=== PATIENT | female | born 1965 | race Caucasian/White ===

== ENCOUNTER 2018-11-03 20:22 | Observation (INO) | payer OTHER ==
[~2018-11-03] VITALS: Ht 162.6 cm; Wt 69.1 kg
[~2018-11-03 20:22] MED LIST: ATIVAN2 MG; BACLOFEN10 MG PO; FLUCONAZOLE100 MG PO; GABAPENTIN300 MG PO; Insulin Detemir SQ; KEFLEX500 MG PO; MACROBID 100 M100 MG PO; MOTRIN200 MG PO; NIFEDIPINE ER30 M1 PO; NORCO 10MG-325MG1 EA PO; PRAVASTATIN SOD40 MG PEG; TYLENOL WITH C1 EACH PO; ZOFRAN ODT4 MG PO
--- OUTSIDE RECORDS SUMMARY | 2018-11-03 20:24 | XMS REPORT ---
Author Author Kevin Brown Organization [employer] Address Unknown Phone Unavailable Care Team Providers Care Maintenance Manager Name Role Phone Kevin Brown CP Unavailable Allergies, Adverse Reactions, Alerts Substance Reaction Event Type Effexor Info Not Available Drug Allergy Detrol Info Not Available Drug Allergy Versed Info Not Available Non Drug Allergy Problems Problem Type Condition Code Onset Dates Condition Status Problem Atherosclerosis of [place] coronary artery of [place] heart without angina pectoris I25.10 Active Assessment DM w/o complication type II, uncontrolled E11.65 Active Problem DM w/o complication type II, uncontrolled E11.65 Active Assessment Hx of CABG Z95.1 Active Assessment Tachycardia R00.0 Active Assessment Atherosclerosis of [place] coronary artery of [place] heart without angina pectoris I25.10 Active Assessment Open wound of right foot, initial encounter S91.301A Active Medications Medication Code System Code Instructions Start Date End Date Status Dosage Tramadol HCl ND 90095494998 50 MG Orally every 6 hrs Active 1 tablet as needed Gabapentin ND 62505637726 600 MG Orally Three times a day Active 1 tablet Toprol XL ND 98013624723 25 MG Orally Once a day Nov 13, 2017 Active 1 tablet Aspirin ND 79517882964 81 MG Orally Once a day Active 1 tablet Tizanidine HCl ND 60284118308 4 MG Orally Three times a day Active 1 tablet as needed Metformin HCl ND 40351910473 500 MG Orally Twice a day Active 1 tablet with meals Lorazepam ND 07187131987 2 MG Orally Once a day Active 1 tablet at bedtime as needed Tylenol/Codeine #4 [facility] 54521560019 300-60 MG Orally every 6 hrs Active 1 tablet as needed Vital Signs Date/Time: Nov 13, 2017 BMI 25.97 Index Weight 133 lbs Height 5'3 in Cardiac Monitoring Heart Rate 120 /min Blood Pressure Diastolic 80 mm Hg Blood Pressure Systolic 122 mm Hg Results No Known Results Summary Purpose [employer] Submission
--- OUTSIDE RECORDS SUMMARY | 2018-11-03 20:24 | XMS REPORT | Clinical Summary ---
Author Author ERIKA [facility] Address Unknown Phone Unavailable Care Team Providers Care Freezing Room Worker Name Role Phone Pcp, No PCP Unavailable Jax Quarles Unavailable Allergies Comments Active Allergy Reactions Severity Noted Date Baclofen High 06/01/2017 Tolterodine High 06/01/2017 Venlafaxine High 06/01/2017 Medications End Date Status Medication Sig Dispensed Refills Start Date Active lisinopril Take 5 mg by 0 (PRINIVIL,ZESTRIL) 5 MG mouth daily. tablet Active LORazepam (ATIVAN) 2 MG Take 2 mg by 0 tabletIndications: mouth every 8 anxiety (eight) hours as needed . Active docusate sodium (COLACE) Take 100 mg 0 100 MG capsule by mouth 2 (two) times daily. Active insulin detemir (LEVEMIR) Inject 0.1 3 mL 0 100 unit/mL (3 mL) InPn mLs (10 Units 7 injectionIndications: total) type 2 diabetes mellitus subcutaneousl y nightly. Active Problems Problem Noted Date Peripheral arterial disease 06/10/2017 S/P arterial stent 06/10/2017 Acute postoperative pain 06/10/2017 Arterial embolus of lower extremity 06/10/2017 Current smoker 06/10/2017 Acute systolic heart failure 06/10/2017 Shock 06/08/2017 Acute pulmonary insufficiency following thoracic surgery 06/08/2017 Postoperative anemia due to acute blood loss 06/08/2017 Thrombocytopenia 06/08/2017 Hyperglycemia 06/08/2017 S/P CABG x 3 06/07/2017 Ischemic cardiomyopathy 06/07/2017 Chronic combined systolic and diastolic heart failure 06/07/2017 Acute on chronic systolic congestive heart failure 06/02/2017 Severe Coronary artery disease involving [place] coronary artery of [place] 06/02/2017 heart Social History Date Tobacco Use Types Packs/Day Years Used Former Smoker Smokeless Tobacco: Never Used Alcohol Use Drinks/Week oz/Week Comments No Sex Assigned at Date Recorded Not on file Industry Job Start Date Occupation Not on file Not on file Not on file Travel End Travel History Travel Start No recent travel history available. Last Filed Vital Signs Not on file Plan of Treatment Not on file Results Not on fileafter 11/02/2017 Insurance Payer Benefit Subscriber ID Type Phone Address Plan / Group [employer] - MGD CARE CIG[employer] xxxxxxxxxxx HMO/POS HMO/POS/OP EN ACCESS Advance Directives For more information, please contact: [facility] [address] [place] [phone] Date Inactivated Comments Code Status Date Activated 06/13/2017 7:26 PM Full Code 06/07/2017 6:14 PM This code status was determined by: Person holding Power of Customer Service Receptionist 06/07/2017 6:14 PM Full Code 06/04/2017 8:40 PM This code status was determined by: Patient 06/04/2017 8:40 PM Full Code 06/04/2017 6:07 PM This code status was determined by: Patient 06/04/2017 6:07 PM Full Code 06/02/2017 3:02 AM This code status was determined by: Patient
--- OUTSIDE RECORDS SUMMARY | 2018-11-03 20:24 | XMS REPORT | Continuity of Care Document ---
Author Author [facility] Address Unknown Phone Unavailable Problems Problem Status Onset Date Classification Date Reported Comments Source Atherosclerosis of [place] coronary artery of [place] heart without angina pectoris Active Problem 05/21/2018 Kevin Brown DM w/o complication type II, uncontrolled Active Diagnosis 05/21/2018 Kevin Brown Hx of CABG Active Diagnosis 05/21/2018 Kevin Brown Tachycardia Active Diagnosis 05/21/2018 Kevin Brown Open wound of right foot, initial encounter Active Diagnosis 05/21/2018 Kevin Brown Other symptoms involving cardiovascular system Active Diagnosis 05/21/2018 Kevin Brown Precordial pain Active Diagnosis 05/21/2018 Kevin Brown Atheroscler-limb&claudic Active Problem 05/21/2018 Kevin Brown Shortness of breath Active Diagnosis 05/21/2018 Kevin Brown Tobacco abuse Active Diagnosis 05/21/2018 Kevin Brown Medications Medication Details Route Status Patient Instructions Ordering Provider Order Date Source Toprol XL 1 tablet Orally Active 25 MG Orally Once a day med 11/13/2017 Kevin Brown Tramadol HCl 1 tablet as needed Orally Active 50 MG Orally every 6 hrs Kevin Brown Gabapentin 1 tablet Orally Active 600 MG Orally Three times a day Kevin Brown Aspirin 1 tablet Orally Active 81 MG Orally Once a day Kevin Brown Tizanidine HCl 1 tablet as needed Orally Active 4 MG Orally Three times a day Kevin Brown Metformin HCl 1 tablet with meals Orally Active 500 MG Orally Twice a day Kevin Brown Lorazepam 1 tablet at bedtime as needed Orally Active 2 MG Orally Once a day Kevin Brown Tylenol/Codeine #4 1 tablet as needed Orally Active 300-60 MG Orally every 6 hrs Kevin Brown Plavix 1 tablet Orally Active 75 MG Orally Once a day Kevin Brown Lisinopril 1 tablet Orally Active 2.5 MG Orally Once a day Kevin Brown Potassium Chloride Judit ER 1 tablet with food Orally Active 10 MEQ Orally Twice a day Kevin Brown Metoprolol Succinate ER 1 tablet Orally Active 25 MG Orally Once a day Kevin Brown Furosemide 1 tablet Orally Active 20 MG Orally Once a day Kevin Brown Atorvastatin Calcium 1 tablet Orally Active 40 MG Orally Once a day Kevin Brown Carvedilol not defined Orally Active 3.125 MG Orally Kevin Brown Toprol XL 1 tablet Orally Active 25 MG Orally Once a day Kevin Brown Allergies, Adverse Reactions, Alerts Substance Category Reaction Severity Reaction type Status Date Reported Comments Source Effexor Adverse Reaction Info Not Available Adverse Reaction Active 04/02/2018 Kevin Brown Detrol Adverse Reaction Info Not Available Adverse Reaction Active 04/02/2018 Kevin Brown Versed Adverse Reaction Info Not Available Adverse Reaction Active 04/02/2018 Kevin Brown Immunizations Immunization Date Given Site Status Last Updated Comments Source Results Order Name Results Value Reference Range Date Interpretation Comments Source Vital Signs Vital Sign Value Date Comments Source Weight 133 04/02/2018 Kevin Brown Heart Rate 102 04/02/2018 Thomasaaliyah Thomasaaliyah Diastolic (mm Hg) 70 04/02/2018 Thomasaaliyah Brown Systolic (mm Hg) 112 04/02/2018 Kevin Brwon Weight 133 11/13/2017 eKvin Brown Heart Rate 120 11/13/2017 Thomasaaliyah Brown Diastolic (mm Hg) 80 11/13/2017 Thomasaaliyah Brown Systolic (mm Hg) 122 11/13/2017 Kevin Brown Encounters Location Location Details Encounter Type Encounter Number Reason For Visit Attending Provider ADM Date DC Date Status Source Procedures Procedure Code Date Perfomer Comments Source
--- OUTSIDE RECORDS SUMMARY | 2018-11-03 20:25 | XMS REPORT ---
Author Author Kevin Brown Organization [employer] Address Unknown Phone Unavailable Care Team Providers Care Physical Therapy Director Name Role Phone Kevin Brown CP Unavailable Allergies No Known Allergies Problems Problem Type Condition Code Onset Dates Condition Status Assessment Hx of CABG Z95.1 Active Assessment DM w/o complication type II, uncontrolled E11.65 Active Assessment Other symptoms involving cardiovascular system R09.89 Active Problem DM w/o complication type II, uncontrolled E11.65 Active Problem Atherosclerosis of [place] coronary artery of [place] heart without angina pectoris I25.10 Active Problem Atheroscler-limb&claudic I70.219 Active Assessment Atherosclerosis of [place] coronary artery of [place] heart without angina pectoris I25.10 Active Assessment Tachycardia R00.0 Active Assessment Shortness of breath R06.02 Active Assessment Precordial pain R07.2 Active Assessment Open wound of right foot, initial encounter S91.301A Active Assessment Tobacco abuse Z72.0 Active Assessment Atheroscler-limb&claudic I70.219 Active Medications Medication Code System Code Instructions Start Date End Date Status Dosage Toprol XL [facility] 95608343051 25 MG Orally Once a day Active 1 tablet Results No Known Results Summary Purpose [employer] Submission
--- OUTSIDE RECORDS SUMMARY | 2018-11-03 20:25 | XMS REPORT ---
Author Author Kevin Brown Organization [employer] Address Unknown Phone Unavailable Care Team Providers Care Master Control Supervisor Name Role Phone Kevin Brown CP Unavailable Allergies, Adverse Reactions, Alerts Substance Reaction Event Type Effexor Info Not Available Drug Allergy Detrol Info Not Available Drug Allergy Versed Info Not Available Non Drug Allergy Problems Problem Type Condition Code Onset Dates Condition Status Assessment Other symptoms involving cardiovascular system R09.89 Active Assessment Tachycardia R00.0 Active Assessment Precordial pain R07.2 Active Problem DM w/o complication type II, uncontrolled E11.65 Active Problem Atherosclerosis of [place] coronary artery of [place] heart without angina pectoris I25.10 Active Problem Atheroscler-limb&claudic I70.219 Active Assessment Open wound of right foot, initial encounter S91.301A Active Assessment Hx of CABG Z95.1 Active Assessment DM w/o complication type II, uncontrolled E11.65 Active Assessment Atherosclerosis of [place] coronary artery of [place] heart without angina pectoris I25.10 Active Assessment Shortness of breath R06.02 Active Assessment Tobacco abuse Z72.0 Active Assessment Atheroscler-limb&claudic I70.219 Active Medications Medication Code System Code Instructions Start Date End Date Status Dosage Tylenol/Codeine #4 [facility] 76103082716 300-60 MG Orally every 6 hrs Active 1 tablet as needed Lorazepam ND 10971114201 2 MG Orally Once a day Active 1 tablet at bedtime as needed Plavix [facility] 59334283577 75 MG Orally Once a day Active 1 tablet Lisinopril ND 48085218254 2.5 MG Orally Once a day Active 1 tablet Potassium Chloride Judit ER ND 25474722281 10 MEQ Orally Twice a day Active 1 tablet with food Metformin HCl ND 70664012652 500 MG Orally Twice a day Active 1 tablet with meals Metoprolol Succinate ER ND 50689501430 25 MG Orally Once a day Active 1 tablet Furosemide ND 52295319682 20 MG Orally Once a day Active 1 tablet Atorvastatin Calcium ND 74487235923 40 MG Orally Once a day Active 1 tablet Carvedilol [facility] 04480863471 3.125 MG Orally Active not defined Tramadol HCl [facility] 13824354365 50 MG Orally every 6 hrs Active 1 tablet as needed Toprol XL [facility] 72008108390 25 MG Orally Once a day Active 1 tablet Gabapentin [facility] 55413866847 600 MG Orally Three times a day Active 1 tablet Aspirin [facility] 02834516040 81 MG Orally Once a day Active 1 tablet Tizanidine HCl [facility] 38856037801 4 MG Orally Three times a day Active 1 tablet as needed Vital Signs Date/Time: April 02, 2018 BMI 25.97 Index Weight 133 lbs Height 5'3 in Cardiac Monitoring Heart Rate 102 /min Blood Pressure Diastolic 70 mm Hg Blood Pressure Systolic 112 mm Hg Results No Known Results Summary Purpose [employer]Works Submission
--- OUTSIDE RECORDS SUMMARY | 2018-11-03 20:26 | XMS REPORT ---
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 Allergies, Adverse Reactions, Alerts Allergy Name Allergy Type Status Severity Reaction(s) Onset Date Inactive Date Treating Clinician Comments baclofen DA Active MO 2018-09-13 00:00:00 tolterodine tartrate DA Active U 2018-07-11 00:00:00 baclofen DA Active U 2018-07-11 00:00:00 venlafaxine DA Active MO 2018-07-11 00:00:00 midazolam DA Active MO 2018-07-11 00:00:00 tolterodine tartrate DA Active U 2018-04-25 00:00:00 baclofen DA Active U 2018-04-25 00:00:00 venlafaxine DA Active MO 2018-04-25 00:00:00 midazolam DA Active MO 2018-04-25 00:00:00 Medications This patient has no known medications. Results Test Description Test Time Test Comments Text Results Atomic Results Result Comments BLOOD CULTURE 2017-06-15 00:00:00 CULTURE (BEAKER) (test xjtu=6546) No growth in 5 days BLOOD [id number] 00:00:00* Test Item Value Reference Range Comments CULTURE (BEAKER) (test gwbr=4859) No growth in 5 days POCT-GLUCOSE [id number] 08:13:00* Test Item Value Reference Range Comments POC-GLUCOSE METER (BEAKER) (test yxya=6336) 181 mg/dL 70-110 TESTED AT [address] [address] CBC (HEMOGRAM ONLY)2017-06-13 08:07:00* Test Item Value Reference Range Comments WHITE BLOOD CELL COUNT (BEAKER) (test llel=516) 8.0 K/ L 3.5-10.5 RED BLOOD CELL COUNT (BEAKER) (test wtlz=583) 2.97 M/ L 3.93-5.22 HEMOGLOBIN (BEAKER) (test oxqp=407) 9.4 GM/DL 11.2-15.7 HEMATOCRIT (BEAKER) (test cmhb=851) 29.4 % 34.1-44.9 MEAN CORPUSCULAR VOLUME (BEAKER) (test rsip=573) 99.0 fL 79.4-94.8 MEAN CORPUSCULAR HEMOGLOBIN (BEAKER) (test zedo=880) 31.6 pg 25.6-32.2 MEAN CORPUSCULAR HEMOGLOBIN CONC (BEAKER) (test hwnr=656) 32.0 GM/DL 32.2-35.5 RED CELL DISTRIBUTION WIDTH (BEAKER) (test efsh=432) 14.0 % 11.7-14.4 PLATELET COUNT (BEAKER) (test cbyz=284) 237 K/CU MM 150-450 MEAN PLATELET VOLUME (BEAKER) (test ssgf=406) 11.6 fL 9.4-12.3 NUCLEATED RED BLOOD CELLS (BEAKER) (test kuuu=935) 0 /100 WBC 0-0 BASIC METABOLIC [id number] 07:16:00* Test Item Value Reference Range Comments SODIUM (BEAKER) (test jvyl=168) 138 meq/L 136-145 POTASSIUM (BEAKER) (test uate=583) 3.9 meq/L 3.5-5.1 CHLORIDE (BEAKER) (test wlpr=577) 107 meq/L 98-107 CO2 (BEAKER) (test nuzi=511) 21 meq/L 22-29 BLOOD UREA NITROGEN (BEAKER) (test srfc=512) 13 mg/dL 7-21 CREATININE (BEAKER) (test jxrm=224) 0.67 mg/dL 0.57-1.25 GLUCOSE RANDOM (BEAKER) (test oiys=073) 172 mg/dL 70-105 CALCIUM (BEAKER) (test zbur=505) 8.4 mg/dL 8.4-10.2 EGFR (BEAKER) (test szuf=5795) 92 mL/min/1.73 sq m ESTIMATED GFR IS NOT ACCURATE CREATININE CLEARANCE IN PREDICTING GLOMERULAR FILTRATION RATE. ESTIMATED GFR IS NOT APPLICABLE FOR DIALYSIS PATIENTS. [id number] 07:16:00* Test Item Value Reference Range Comments MAGNESIUM (BEAKER) (test mfck=965) 1.4 mg/dL 1.6-2.6 POCT-GLUCOSE [id number] 01:12:00* Test Item Value Reference Range Comments POC-GLUCOSE METER (BEAKER) (test ngmd=9789) 177 mg/dL 70-[address] [facility] [address] [facility] [address] POCT-GLUCOSE [id number] 21:33:00* Test Item Value Reference Range Comments POC-GLUCOSE METER (BEAKER) (test uevd=6263) 278 mg/dL 70-110 TESTED AT [place] [id number] [facility] [address] URINALYSIS W/ [id number] 19:16:00* Test Item Value Reference Range Comments COLOR (BEAKER) (test omsu=937) Yellow CLARITY (BEAKER) (test auhz=560) Clear SPECIFIC GRAVITY UA (BEAKER) (test nqjy=945) 1.015 1.001-1.035 PH UA (BEAKER) (test nqtg=357) 7.5 5.0-8.0 PROTEIN UA (BEAKER) (test duar=152) 10 mg/dL Negative GLUCOSE UA (BEAKER) (test jldh=619) Negative Negative KETONES UA (BEAKER) (test gibt=585) Negative Negative BILIRUBIN UA (BEAKER) (test zrdq=815) Negative Negative BLOOD UA (BEAKER) (test vbnt=020) Negative Negative NITRITE UA (BEAKER) (test dugy=243) Negative Negative LEUKOCYTE ESTERASE UA (BEAKER) (test vwbt=887) Negative Negative UROBILINOGEN UA (BEAKER) (test fkam=335) > mg/dL 0.2-1.0 RBC UA (BEAKER) (test rygs=556) 0 /HPF WBC UA (BEAKER) (test ocvt=810) 1 /HPF SQUAMOUS EPITHELIAL (BEAKER) (test urkb=691) 1 /HPF SOURCE(BEAKER) (test yotr=6234) Urine, Voided POCT-GLUCOSE [id number] 17:33:00* Test Item Value Reference Range Comments POC-GLUCOSE METER (BEAKER) (test kkpd=5232) 194 mg/dL 70-110 TESTED AT [place] [id number] URINE [id number] 17:00:00* Test Item Value Reference Range Comments CULTURE (BEAKER) (test ifmv=7335) >100,000 col/mL Olga glabrataThis is a corrected organism result. Previous result was Olga krusei on 06/12/2017 at 0904 CDT CORRECTED REPORTFROM OLGA KRUSEI AND OLGA ALBICANS TO OLGA GLABRA TAPOCT-GLUCOSE [id number] 13:34:00* Test Item Value Reference Range Comments POC-GLUCOSE METER (BEAKER) (test qded=1004) 170 mg/dL 70-110 TESTED AT [address] [address] POCT-GLUCOSE [id number] 08:00:00* Test Item Value Reference Range Comments POC-GLUCOSE METER (BEAKER) (test ltrp=8085) 173 mg/dL 70-110 TESTED AT [address] [address] POCT-GLUCOSE [id number] 21:15:00* Test Item Value Reference Range Comments POC-GLUCOSE METER (BEAKER) (test odme=7152) 236 mg/dL 70-110 TESTED AT [address] [address] POCT-GLUCOSE [id number] 17:28:00* Test Item Value Reference Range Comments POC-GLUCOSE METER (BEAKER) (test cild=9900) 130 mg/dL 70-110 TESTED AT [address] [address] POCT-GLUCOSE [id number] 12:21:00* Test Item Value Reference Range Comments POC-GLUCOSE METER (BEAKER) (test yxzm=2512) 261 mg/dL 70-110 TESTED AT [place] [address] [id number] 08:02:00* Test Item Value Reference Range Comments MAGNESIUM (BEAKER) (test zgqs=963) 1.7 mg/dL 1.6-2.6 BASIC METABOLIC [id number] 08:02:00* Test Item Value Reference Range Comments SODIUM (BEAKER) (test xbhx=782) 137 meq/L 136-145 POTASSIUM (BEAKER) (test sqnp=720) 3.9 meq/L 3.5-5.1 CHLORIDE (BEAKER) (test bikz=270) 105 meq/L 98-107 CO2 (BEAKER) (test lmko=357) 24 meq/L 22-29 BLOOD UREA NITROGEN (BEAKER) (test eero=686) 19 mg/dL 7-21 CREATININE (BEAKER) (test wept=811) 0.71 mg/dL 0.57-1.25 GLUCOSE RANDOM (BEAKER) (test naak=272) 179 mg/dL 70-105 CALCIUM (BEAKER) (test sege=656) 8.6 mg/dL 8.4-10.2 EGFR (BEAKER) (test ebyi=0065) 86 mL/min/1.73 sq m ESTIMATED GFR IS NOT ACCURATE CREATININE CLEARANCE IN PREDICTING GLOMERULAR FILTRATION RATE. ESTIMATED GFR IS NOT APPLICABLE FOR DIALYSIS PATIENTS. POCT-GLUCOSE [id number] 07:47:00* Test Item Value Reference Range Comments POC-GLUCOSE METER (BEAKER) (test maiu=4684) 199 mg/dL 70-110 TESTED AT [address] [address] POCT-GLUCOSE [id number] 22:31:00* Test Item Value Reference Range Comments POC-GLUCOSE METER (BEAKER) (test bexp=7447) 185 mg/dL 70-110 TESTED AT [address] [address] POCT-GLUCOSE [id number] 16:39:00* Test Item Value Reference Range Comments POC-GLUCOSE METER (BEAKER) (test rjqq=8613) 191 mg/dL 70-110 TESTED AT [address] [address] POCT-GLUCOSE [id number] 12:36:00* Test Item Value Reference Range Comments POC-GLUCOSE METER (BEAKER) (test zbwc=3567) 203 mg/dL 70-110 TESTED AT [address] [address] POCT-GLUCOSE [id number] 07:42:00* Test Item Value Reference Range Comments POC-GLUCOSE METER (BEAKER) (test obbm=1427) 178 mg/dL 70-110 TESTED AT [address] [address] [id number] 07:23:00* Test Item Value Reference Range Comments MAGNESIUM (BEAKER) (test yuxi=892) 2.0 mg/dL 1.6-2.6 CBC W/PLT COUNT & AUTO [id number] 05:35:00* Test Item Value Reference Range Comments WHITE BLOOD CELL COUNT (BEAKER) (test zjeh=313) 12.0 K/ L 3.5-10.5 RED BLOOD CELL COUNT (BEAKER) (test dgln=566) 3.37 M/ L 3.93-5.22 HEMOGLOBIN (BEAKER) (test wzlv=008) 10.4 GM/DL 11.2-15.7 HEMATOCRIT (BEAKER) (test xxzn=424) 32.4 % 34.1-44.9 MEAN CORPUSCULAR VOLUME (BEAKER) (test vkbo=622) 96.1 fL 79.4-94.8 MEAN CORPUSCULAR HEMOGLOBIN (BEAKER) (test ulge=063) 30.9 pg 25.6-32.2 MEAN CORPUSCULAR HEMOGLOBIN CONC (BEAKER) (test crgl=457) 32.1 GM/DL 32.2-35.5 RED CELL DISTRIBUTION WIDTH (BEAKER) (test vlmw=105) 15.0 % 11.7-14.4 PLATELET COUNT (BEAKER) (test taoc=737) 130 K/CU MM 150-450 MEAN PLATELET VOLUME (BEAKER) (test lgmt=291) 12.3 fL 9.4-12.3 NUCLEATED RED BLOOD CELLS (BEAKER) (test tvwx=186) 0 /100 WBC 0-0 NEUTROPHILS RELATIVE PERCENT (BEAKER) (test lbkh=411) 68 % LYMPHOCYTES RELATIVE PERCENT (BEAKER) (test gatl=768) 22 % MONOCYTES RELATIVE PERCENT (BEAKER) (test dcei=620) 7 % EOSINOPHILS RELATIVE PERCENT (BEAKER) (test kale=198) 1 % BASOPHILS RELATIVE PERCENT (BEAKER) (test unep=748) 1 % NEUTROPHILS ABSOLUTE COUNT (BEAKER) (test qngc=721) 8.19 K/ L 1.56-6.13 LYMPHOCYTES ABSOLUTE COUNT (BEAKER) (test jcnz=804) 2.66 K/ L 1.18-3.74 MONOCYTES ABSOLUTE COUNT (BEAKER) (test gimo=382) 0.88 K/ L 0.24-0.36 EOSINOPHILS ABSOLUTE COUNT (BEAKER) (test fxnv=174) 0.12 K/ L 0.04-0.36 BASOPHILS ABSOLUTE COUNT (BEAKER) (test xfhb=968) 0.08 K/ L 0.01-0.08 IMMATURE GRANULOCYTES-RELATIVE PERCENT (BEAKER) (test wgwm=7779) 1 % 0-1 BASIC METABOLIC [id number] 05:08:00* Test Item Value Reference Range Comments SODIUM (BEAKER) (test zkln=601) 139 meq/L 136-145 POTASSIUM (BEAKER) (test jrnc=972) 3.6 meq/L 3.5-5.1 CHLORIDE (BEAKER) (test qlvp=244) 107 meq/L 98-107 CO2 (BEAKER) (test fsvk=864) 21 meq/L 22-29 BLOOD UREA NITROGEN (BEAKER) (test bnyo=639) 16 mg/dL 7-21 CREATININE (BEAKER) (test yutx=012) 0.68 mg/dL 0.57-1.25 GLUCOSE RANDOM (BEAKER) (test yxng=172) 163 mg/dL 70-105 CALCIUM (BEAKER) (test lsnj=314) 8.2 mg/dL 8.4-10.2 EGFR (BEAKER) (test lqxe=3246) 90 mL/min/1.73 sq m ESTIMATED GFR IS NOT ACCURATE CREATININE CLEARANCE IN PREDICTING GLOMERULAR FILTRATION RATE. ESTIMATED GFR IS NOT APPLICABLE FOR DIALYSIS PATIENTS. PROTHROMBIN TIME/[id number] 05:06:00* Test Item Value Reference Range Comments PROTIME (BEAKER) (test ypdo=240) 15.3 seconds 11.7-14.7 INR (BEAKER) (test kmud=108) 1.2 <=5.9 RECOMMENDED COUMADIN/WARFARIN INR THERAPY RANGESSTANDARD DOSE: 2.0 - 3.0 Inclu taylor: PROPHYLAXIS for venous thrombosis, systemic embolization; TREATMENT for benson ous thrombosis and/or pulmonary embolus.HIGH RISK: Target INR is 2.5-3.5 for pat ients with mechanical heart valves.[id number] 05:06:00* Test Item Value Reference Range Comments PARTIAL THROMBOPLASTIN TIME (BEAKER) (test jndw=307) 26.4 seconds 22.5-36.0 CALCIUM, [id number] 05:00:00* Test Item Value Reference Range Comments CALCIUM IONIZED (BEAKER) (test tsoe=541) 1.02 mmol/L 1.12-1.27 PH, BLOOD (BEAKER) (test uswo=2439) 7.42 POCT-GLUCOSE [id number] 02:33:00* Test Item Value Reference Range Comments POC-GLUCOSE METER (BEAKER) (test wmfp=4759) 190 mg/dL 70-[address] [facility] [address] [facility] [address] SPUTUM CULTURE + GRAM [id number] 23:24:00* Test Item Value Reference Range Comments CULTURE (BEAKER) (test xeua=6557) Oropharyngeal contamination, specimen rejected. Recollect requested. GRAM STAIN RESULT (BEAKER) (test mgdl=1911) <1+ WBCs GRAM STAIN RESULT (BEAKER) (test gehc=27383) >25 epithelial cells GRAM STAIN RESULT (BEAKER) (test ysqs=28783) 1+ gram negative rods GRAM STAIN RESULT (BEAKER) (test hqfr=236421) 1+ gram positive rods GRAM STAIN RESULT (BEAKER) (test annr=885275) 2+ gram positive cocci in pairs GRAM STAIN RESULT (BEAKER) (test wthj=199290) <1+ yeast GRAM STAIN RESULT (BEAKER) (test ogco=345636) <1+ gram variable rods [id number] 22:09:00* Test Item Value Reference Range Comments POTASSIUM (BEAKER) (test dzeu=297) 4.0 meq/L 3.5-5.1 Check Serum Magnesium level 2 hours after IV magnesium replacement.Check Serum P otassium level 2 hours after oral potassium replacement completed or 30 min afte r intravenous potassium replacement.[id number] 22:09:00* Test Item Value Reference Range Comments MAGNESIUM (BEAKER) (test aqns=159) 1.9 mg/dL 1.6-2.6 Check Serum Magnesium level 2 hours after IV magnesium replacement.Check Serum P otassium level 2 hours after oral potassium replacement completed or 30 min afte r intravenous potassium replacement.HEMOGLOBIN AND [id number] 21:46:00 * Test Item Value Reference Range Comments HEMOGLOBIN (BEAKER) (test pwpo=104) 10.2 GM/DL 11.2-15.7 HEMATOCRIT (BEAKER) (test cmtx=512) 31.7 % 34.1-44.9 POCT-GLUCOSE [id number] 19:29:00* Test Item Value Reference Range Comments POC-GLUCOSE METER (BEAKER) (test bpyv=4399) 179 mg/dL 70-[address] [facility] [address] [facility] [address] [id number] 15:59:00* Test Item Value Reference Range Comments ACTIVATED CLOTTING TIME (BEAKER) (test rszv=410) 224 sec TESTED AT [place] [id number] [facility] [address] HGB/HCT (H&H) - STAT [id number] 14:22:00* Test Item Value Reference Range Comments HEMOGLOBIN (BEAKER) (test qsuh=884) 10.3 g/dL 12.0-15.0 HEMATOCRIT (BEAKER) (test fjfh=074) 30.0 % 36.0-45.0 PH, [id number] 14:22:00* Test Item Value Reference Range Comments PH VENOUS (BEAKER) (test fblk=220) 7.48 7.32-7.42 SODIUM NA-STAT [id number] 14:21:00* Test Item Value Reference Range Comments SODIUM (BEAKER) (test jfvr=948) 138 meq/L 135-148 POTASSIUM-STAT [id number] 14:21:00* Test Item Value Reference Range Comments POTASSIUM (BEAKER) (test aqle=047) 3.5 meq/L 3.6-5.5 OXYGEN SATURATION, [id number] 14:20:00* Test Item Value Reference Range Comments O2 SATURATION (MEASURED) (BEAKER) (test lisc=9091) 64.0 % [id number] 14:03:00* Test Item Value Reference Range Comments PARTIAL THROMBOPLASTIN TIME (BEAKER) (test sfek=227) 33.2 seconds 22.5-36.0 Prior to initiating heparinBASIC METABOLIC [id number] 14:01:00* Test Item Value Reference Range Comments SODIUM (BEAKER) (test hrez=791) 141 meq/L 136-145 POTASSIUM (BEAKER) (test cmpm=457) 3.9 meq/L 3.5-5.1 CHLORIDE (BEAKER) (test faln=451) 109 meq/L 98-107 CO2 (BEAKER) (test vxmp=462) 23 meq/L 22-29 BLOOD UREA NITROGEN (BEAKER) (test zwho=016) 15 mg/dL 7-21 CREATININE (BEAKER) (test qvkk=338) 0.75 mg/dL 0.57-1.25 GLUCOSE RANDOM (BEAKER) (test irsp=021) 145 mg/dL 70-105 CALCIUM (BEAKER) (test qlaz=641) 8.7 mg/dL 8.4-10.2 EGFR (BEAKER) (test wnry=8638) 81 mL/min/1.73 sq m ESTIMATED GFR IS NOT ACCURATE CREATININE CLEARANCE IN PREDICTING GLOMERULAR FILTRATION RATE. ESTIMATED GFR IS NOT APPLICABLE FOR DIALYSIS PATIENTS. PLATELET [id number] 13:43:00* Test Item Value Reference Range Comments PLATELET COUNT (BEAKER) (test gajc=305) 122 K/CU MM 150-450 POCT-GLUCOSE [id number] 12:52:00* Test Item Value Reference Range Comments POC-GLUCOSE METER (BEAKER) (test vwod=8087) 157 mg/dL 70-110 TESTED AT [address] [address] POCT-GLUCOSE [id number] 08:38:00* Test Item Value Reference Range Comments POC-GLUCOSE METER (BEAKER) (test zubm=1092) 207 mg/dL 70-110 TESTED AT [address] [address] BASIC METABOLIC [id number] 04:32:00* Test Item Value Reference Range Comments SODIUM (BEAKER) (test ewtz=159) 138 meq/L 136-145 POTASSIUM (BEAKER) (test hdyc=534) 4.4 meq/L 3.5-5.1 CHLORIDE (BEAKER) (test yuwo=807) 109 meq/L 98-107 CO2 (BEAKER) (test okvs=489) 21 meq/L 22-29 BLOOD UREA NITROGEN (BEAKER) (test zrhq=509) 13 mg/dL 7-21 CREATININE (BEAKER) (test birj=392) 0.73 mg/dL 0.57-1.25 GLUCOSE RANDOM (BEAKER) (test gisq=710) 155 mg/dL 70-105 CALCIUM (BEAKER) (test wndy=448) 8.4 mg/dL 8.4-10.2 EGFR (BEAKER) (test qwwk=0749) 83 mL/min/1.73 sq m ESTIMATED GFR IS NOT ACCURATE CREATININE CLEARANCE IN PREDICTING GLOMERULAR FILTRATION RATE. ESTIMATED GFR IS NOT APPLICABLE FOR DIALYSIS PATIENTS. [id number] 04:31:00* Test Item Value Reference Range Comments MAGNESIUM (BEAKER) (test ebva=908) 2.8 mg/dL 1.6-2.6 CBC W/PLT COUNT & AUTO [id number] 03:53:00* Test Item Value Reference Range Comments WHITE BLOOD CELL COUNT (BEAKER) (test gamo=380) 11.9 K/ L 3.5-10.5 RED BLOOD CELL COUNT (BEAKER) (test hutd=350) 3.08 M/ L 3.93-5.22 HEMOGLOBIN (BEAKER) (test kugx=926) 9.5 GM/DL 11.2-15.7 HEMATOCRIT (BEAKER) (test iifa=864) 29.8 % 34.1-44.9 MEAN CORPUSCULAR VOLUME (BEAKER) (test jwhp=800) 96.8 fL 79.4-94.8 MEAN CORPUSCULAR HEMOGLOBIN (BEAKER) (test rlkj=919) 30.8 pg 25.6-32.2 MEAN CORPUSCULAR HEMOGLOBIN CONC (BEAKER) (test bzhf=739) 31.9 GM/DL 32.2-35.5 RED CELL DISTRIBUTION WIDTH (BEAKER) (test rcvs=592) 15.3 % 11.7-14.4 PLATELET COUNT (BEAKER) (test yaao=041) 113 K/CU MM 150-450 MEAN PLATELET VOLUME (BEAKER) (test vedu=037) 12.1 fL 9.4-12.3 NUCLEATED RED BLOOD CELLS (BEAKER) (test mqpe=033) 0 /100 WBC 0-0 NEUTROPHILS RELATIVE PERCENT (BEAKER) (test yjuj=185) 65 % LYMPHOCYTES RELATIVE PERCENT (BEAKER) (test hpod=251) 24 % MONOCYTES RELATIVE PERCENT (BEAKER) (test apnf=622) 8 % EOSINOPHILS RELATIVE PERCENT (BEAKER) (test cupx=659) 1 % BASOPHILS RELATIVE PERCENT (BEAKER) (test ibcs=447) 1 % NEUTROPHILS ABSOLUTE COUNT (BEAKER) (test aqhx=810) 7.75 K/ L 1.56-6.13 LYMPHOCYTES ABSOLUTE COUNT (BEAKER) (test zmqf=070) 2.87 K/ L 1.18-3.74 MONOCYTES ABSOLUTE COUNT (BEAKER) (test pjbw=771) 0.98 K/ L 0.24-0.36 EOSINOPHILS ABSOLUTE COUNT (BEAKER) (test mvdq=721) 0.12 K/ L 0.04-0.36 BASOPHILS ABSOLUTE COUNT (BEAKER) (test qmfx=738) 0.06 K/ L 0.01-0.08 IMMATURE GRANULOCYTES-RELATIVE PERCENT (BEAKER) (test smta=1974) 1 % 0-1 CALCIUM, [id number] 03:49:00* Test Item Value Reference Range Comments CALCIUM IONIZED (BEAKER) (test vqke=373) 1.17 mmol/L 1.12-1.27 PH, BLOOD (BEAKER) (test hpkp=8009) 7.45 OXYGEN SATURATION, [id number] 03:48:00* Test Item Value Reference Range Comments O2 SATURATION (MEASURED) (BEAKER) (test neve=3251) 61.5 % POCT-GLUCOSE [id number] 02:25:00* Test Item Value Reference Range Comments POC-GLUCOSE METER (BEAKER) (test aowg=3707) 130 mg/dL 70-[address] [facility] [address] [facility] [address] [id number] 00:43:00* Test Item Value Reference Range Comments POTASSIUM (BEAKER) (test qmzr=353) 1.7 meq/L 3.5-5.1 [id number] 00:43:00* Test Item Value Reference Range Comments MAGNESIUM (BEAKER) (test pbus=810) < mg/dL 1.6-2.6 CALCIUM, [id number] 00:24:00* Test Item Value Reference Range Comments CALCIUM IONIZED (BEAKER) (test odco=168) 1.14 mmol/L 1.12-1.27 PH, BLOOD (BEAKER) (test qpun=7564) 7.45 HEMOGLOBIN AND [id number] 00:22:00* Test Item Value Reference Range Comments HEMOGLOBIN (BEAKER) (test afek=762) 9.6 GM/DL 11.2-15.7 HEMATOCRIT (BEAKER) (test tfpa=807) 30.0 % 34.1-44.9 POCT-GLUCOSE [id number] 19:25:00* Test Item Value Reference Range Comments POC-GLUCOSE METER (BEAKER) (test jdfg=2388) 156 mg/dL 70-110 TESTED AT [address] [address] POCT-GLUCOSE [id number] 17:01:00* Test Item Value Reference Range Comments POC-GLUCOSE METER (BEAKER) (test xhza=1544) 85 mg/dL 70-110 TESTED AT [address] [address] POCT-GLUCOSE [id number] 17:01:00* Test Item Value Reference Range Comments POC-GLUCOSE METER (BEAKER) (test xgyd=1709) 116 mg/dL 70-110 TESTED AT [address] [address] POCT-GLUCOSE [id number] 17:01:00* Test Item Value Reference Range Comments POC-GLUCOSE METER (BEAKER) (test crpf=4185) 104 mg/dL 70-110 TESTED AT [address] [address] POCT-GLUCOSE [id number] 17:01:00* Test Item Value Reference Range Comments POC-GLUCOSE METER (BEAKER) (test scdk=9049) 125 mg/dL 70-110 TESTED AT [address] [address] POCT-GLUCOSE [id number] 17:01:00* Test Item Value Reference Range Comments POC-GLUCOSE METER (BEAKER) (test fata=5300) 166 mg/dL 70-110 TESTED AT [address] [address] POCT-GLUCOSE [id number] 17:01:00* Test Item Value Reference Range Comments POC-GLUCOSE METER (BEAKER) (test sojj=9500) 228 mg/dL 70-110 TESTED AT [address] [address] POCT-GLUCOSE [id number] 12:51:00* Test Item Value Reference Range Comments POC-GLUCOSE METER (BEAKER) (test urpn=9730) 136 mg/dL 70-110 TESTED AT [address] [address] TROPONIN [id number] 11:17:00* Test Item Value Reference Range Comments TROPONIN I (BEAKER) (test xnkk=760) 1.74 ng/mL 0.00-0.03 Effective 09/06/2014: Reference Range ChangeNew: 0.00-0.03 Previous 0.00-0.15T roponin I (TnI) levels must be interpreted in the context of the presenting symp toms and the clinical findings. Elevated TnI levels indicate myocardial damage, but are not specific for ischemic heart disease. Elevated TnI levels are seen in patients with other cardiac conditions (including myocarditis and congestive he art failure), and slight TnI elevations occur in patients with other conditions, including sepsis, renal failure, acidosis, acute neurological disease, and pers istent tachyarrhythmia.CREATINE KINASE (CK), TOTAL AND [id number] 11:13:00* Test Item Value Reference Range Comments CREATINE KINASE TOTAL (BEAKER) (test zyyf=511) 1773 U/L 29-200 CREATINE KINASE-MB (BEAKER) (test vbdp=841) 14.7 ng/mL 0.0-6.6 CREATINE KINASE-MB INDEX (BEAKER) (test qcqi=043) 0.8 % Effective 09/06/2014: CK-MB Reference Range ChangeNew: 0.0-6.6 Previous: 0.0- 4.9CK-MB Reference Range:<6.7 Normal6.7-10.0 Borderline>10.0 Abnormal CBC W/PLT COUNT & AUTO [id number] 05:56:00* Test Item Value Reference Range Comments WHITE BLOOD CELL COUNT (BEAKER) (test bebe=967) 13.3 K/ L 3.5-10.5 RED BLOOD CELL COUNT (BEAKER) (test ubsn=133) 3.62 M/ L 3.93-5.22 HEMOGLOBIN (BEAKER) (test jild=337) 11.2 GM/DL 11.2-15.7 HEMATOCRIT (BEAKER) (test hhpo=753) 34.2 % 34.1-44.9 MEAN CORPUSCULAR VOLUME (BEAKER) (test ojnw=225) 94.5 fL 79.4-94.8 MEAN CORPUSCULAR HEMOGLOBIN (BEAKER) (test oboi=143) 30.9 pg 25.6-32.2 MEAN CORPUSCULAR HEMOGLOBIN CONC (BEAKER) (test jezw=498) 32.7 GM/DL 32.2-35.5 RED CELL DISTRIBUTION WIDTH (BEAKER) (test newy=147) 15.6 % 11.7-14.4 PLATELET COUNT (BEAKER) (test bkmt=464) 134 K/CU MM 150-450 MEAN PLATELET VOLUME (BEAKER) (test dbos=290) 12.2 fL 9.4-12.3 NUCLEATED RED BLOOD CELLS (BEAKER) (test gfcb=685) 0 /100 WBC 0-0 NEUTROPHILS RELATIVE PERCENT (BEAKER) (test ogll=676) 73 % LYMPHOCYTES RELATIVE PERCENT (BEAKER) (test hwpu=929) 18 % MONOCYTES RELATIVE PERCENT (BEAKER) (test nurp=962) 8 % EOSINOPHILS RELATIVE PERCENT (BEAKER) (test rwhk=702) 0 % BASOPHILS RELATIVE PERCENT (BEAKER) (test bqzr=746) 1 % NEUTROPHILS ABSOLUTE COUNT (BEAKER) (test ccoo=921) 9.65 K/ L 1.56-6.13 LYMPHOCYTES ABSOLUTE COUNT (BEAKER) (test usux=755) 2.41 K/ L 1.18-3.74 MONOCYTES ABSOLUTE COUNT (BEAKER) (test pwct=501) 1.07 K/ L 0.24-0.36 EOSINOPHILS ABSOLUTE COUNT (BEAKER) (test yrfe=780) 0.02 K/ L 0.04-0.36 BASOPHILS ABSOLUTE COUNT (BEAKER) (test rxtw=396) 0.06 K/ L 0.01-0.08 IMMATURE GRANULOCYTES-RELATIVE PERCENT (BEAKER) (test tgaq=8100) 1 % 0-1 [id number] 05:33:00* Test Item Value Reference Range Comments MAGNESIUM (BEAKER) (test xnkb=890) 2.1 mg/dL 1.6-2.6 BASIC METABOLIC [id number] 05:33:00* Test Item Value Reference Range Comments SODIUM (BEAKER) (test useg=737) 140 meq/L 136-145 POTASSIUM (BEAKER) (test vmov=160) 3.6 meq/L 3.5-5.1 CHLORIDE (BEAKER) (test ddzu=454) 113 meq/L 98-107 CO2 (BEAKER) (test qezm=390) 19 meq/L 22-29 BLOOD UREA NITROGEN (BEAKER) (test digp=209) 13 mg/dL 7-21 CREATININE (BEAKER) (test ihbj=095) 0.67 mg/dL 0.57-1.25 GLUCOSE RANDOM (BEAKER) (test zdsq=661) 127 mg/dL 70-105 CALCIUM (BEAKER) (test ooad=593) 8.0 mg/dL 8.4-10.2 EGFR (BEAKER) (test zzol=0725) 92 mL/min/1.73 sq m ESTIMATED GFR IS NOT ACCURATE CREATININE CLEARANCE IN PREDICTING GLOMERULAR FILTRATION RATE. ESTIMATED GFR IS NOT APPLICABLE FOR DIALYSIS PATIENTS. LACTIC ACID, ARTERIAL, WHOLE [id number] 05:20:00* Test Item Value Reference Range Comments LACTATE BLOOD ARTERIAL (2) (BEAKER) (test ykpw=1846) 1.3 mmol/L 0.5-2.2 Effective 02/21/2016: Units/Reference Range ChangeNew: 0.5-2.2 mmol/L Previous: 5 -20 mg/dLOXYGEN SATURATION, [id number] 05:08:00* Test Item Value Reference Range Comments O2 SATURATION (MEASURED) (BEAKER) (test swhq=9004) 73.4 % BLOOD GAS, [id number] 05:08:00* Test Item Value Reference Range Comments PH ARTERIAL (BEAKER) (test iaex=230) 7.45 7.35-7.45 PCO2 ARTERIAL (BEAKER) (test luir=078) 30 mmHg 35-45 PO2 ARTERIAL (BEAKER) (test drre=007) 109 mmHg 80-90 O2 SATURATION ARTERIAL (BEAKER) (test dlgm=047) 98.1 % 96.0-97.0 HCO3 ARTERIAL (BEAKER) (test ifao=710) 20 mmol/L 21-29 BASE EXCESS ARTERIAL (BEAKER) (test zkjf=270) -2.8 mmol/L -2.0-3.0 PATIENT TEMPERATURE (BEAKER) (test dwik=6564) 37.7 C FIO2 (BEAKER) (test qshy=5517) 36.0 % CALCIUM, [id number] 05:08:00* Test Item Value Reference Range Comments CALCIUM IONIZED (BEAKER) (test crvc=416) 1.12 mmol/L 1.12-1.27 PH, BLOOD (BEAKER) (test vuhf=4600) 7.46 [id number] 02:02:00* Test Item Value Reference Range Comments ACTIVATED CLOTTING TIME (BEAKER) (test gxlx=323) [address] [facility] [address] [facility] [address] BLOOD GAS, [id number] 01:55:00* Test Item Value Reference Range Comments PH ARTERIAL (BEAKER) (test emtu=403) 7.42 7.35-7.45 PCO2 ARTERIAL (BEAKER) (test lwok=707) 30 mmHg 35-45 PO2 ARTERIAL (BEAKER) (test cvig=701) 93 mmHg 80-90 O2 SATURATION ARTERIAL (BEAKER) (test otrh=813) 97.1 % 96.0-97.0 HCO3 ARTERIAL (BEAKER) (test fqsb=565) 19 mmol/L 21-29 BASE EXCESS ARTERIAL (BEAKER) (test yqso=495) -4.5 mmol/L -2.0-3.0 PATIENT TEMPERATURE (BEAKER) (test hppd=6882) 37.8 C FIO2 (BEAKER) (test lfeo=7383) 44.0 % TROPONIN [id number] 01:53:00* Test Item Value Reference Range Comments TROPONIN I (BEAKER) (test nxfc=243) 2.77 ng/mL 0.00-0.03 Effective 09/06/2014: Reference Range ChangeNew: 0.00-0.03 Previous 0.00-0.15T roponin I (TnI) levels must be interpreted in the context of the presenting symp toms and the clinical findings. Elevated TnI levels indicate myocardial damage, but are not specific for ischemic heart disease. Elevated TnI levels are seen in patients with other cardiac conditions (including myocarditis and congestive he art failure), and slight TnI elevations occur in patients with other conditions, including sepsis, renal failure, acidosis, acute neurological disease, and pers istent tachyarrhythmia.CREATINE KINASE (CK), TOTAL AND [id number] 01:42:00* Test Item Value Reference Range Comments CREATINE KINASE TOTAL (BEAKER) (test kztt=890) 879 U/L 29-200 CREATINE KINASE-MB (BEAKER) (test wukf=052) 13.7 ng/mL 0.0-6.6 CREATINE KINASE-MB INDEX (BEAKER) (test zhzn=288) 1.6 % Effective 09/06/2014: CK-MB Reference Range ChangeNew: 0.0-6.6 Previous: 0.0- 4.9CK-MB Reference Range:<6.7 Normal6.7-10.0 Borderline>10.0 Abnormal BLOOD GAS, [id number] 01:17:00* Test Item Value Reference Range Comments PH ARTERIAL (BEAKER) (test oeqd=463) 7.40 7.35-7.45 PCO2 ARTERIAL (BEAKER) (test reht=192) 31 mmHg 35-45 PO2 ARTERIAL (BEAKER) (test ceam=304) 132 mmHg 80-90 O2 SATURATION ARTERIAL (BEAKER) (test euky=081) 98.6 % 96.0-97.0 HCO3 ARTERIAL (BEAKER) (test sidv=911) 18 mmol/L 21-29 BASE EXCESS ARTERIAL (BEAKER) (test pghc=335) -5.1 mmol/L -2.0-3.0 PATIENT TEMPERATURE (BEAKER) (test ccgv=3158) 37.9 C FIO2 (BEAKER) (test bgfe=7307) 40.0 % LACTIC ACID, ARTERIAL, WHOLE [id number] 21:09:00* Test Item Value Reference Range Comments LACTATE BLOOD ARTERIAL (2) (BEAKER) (test uheu=5786) 2.1 mmol/L 0.5-2.2 Effective 02/21/2016: Units/Reference Range ChangeNew: 0.5-2.2 mmol/L Previous: 5 -20 mg/[id number] 21:07:00* Test Item Value Reference Range Comments MAGNESIUM (BEAKER) (test couk=765) 1.8 mg/dL 1.6-2.6 HEMOGLOBIN AND [id number] 20:56:00* Test Item Value Reference Range Comments HEMOGLOBIN (BEAKER) (test nbps=633) 11.2 GM/DL 11.2-15.7 HEMATOCRIT (BEAKER) (test laqt=360) 35.0 % 34.1-44.9 BLOOD GAS, [id number] 20:52:00* Test Item Value Reference Range Comments PH ARTERIAL (BEAKER) (test bugz=623) 7.33 7.35-7.45 PCO2 ARTERIAL (BEAKER) (test izeo=932) 38 mmHg 35-45 PO2 ARTERIAL (BEAKER) (test ljqt=463) 148 mmHg 80-90 O2 SATURATION ARTERIAL (BEAKER) (test zwof=615) 98.8 % 96.0-97.0 HCO3 ARTERIAL (BEAKER) (test iqot=499) 20 mmol/L 21-29 BASE EXCESS ARTERIAL (BEAKER) (test fmdh=805) -5.8 mmol/L -2.0-3.0 PATIENT TEMPERATURE (BEAKER) (test qdtx=9190) 37.2 C FIO2 (BEAKER) (test rcus=9045) 50.0 % CALCIUM, [id number] 20:51:00* Test Item Value Reference Range Comments CALCIUM IONIZED (BEAKER) (test jcpr=598) 1.12 mmol/L 1.12-1.27 PH, BLOOD (BEAKER) (test xtut=7258) 7.33 POTASSIUM-STAT [id number] 20:49:00* Test Item Value Reference Range Comments POTASSIUM (BEAKER) (test gfuy=368) 3.5 meq/L 3.6-5.5 THROMBOELASTOGRAPH (TEG)[id number] 19:12:00* Test Item Value Reference Range Comments TEG ACTIVATED CLOTTING TIME (BEAKER) (test hhkn=0385) 7.1 minutes 4.0-7.0 TEG FIBRINOGEN ACTIVITY (BEAKER) (test wykn=7957) 74.9 degrees 61.0-73.[address]T. AGGREGATION (BEAKER) (test mcdl=5401) 63.4 MM 55.0-65.0 TEG FIBRINOLYSIS (BEAKER) (test svhe=2072) 0.0 % 0.0-5.0 TGH ACTIVATED CLOTTING TIME (BEAKER) (test acus=5128) 6.7 minutes 4.0-7.0 TGH FIBRINOGEN ACTIVITY (BEAKER) (test mqhb=4106) 69.7 degrees 61.0-73.0 TGH PLT. AGGREGATION (BEAKER) (test lqxb=8644) 63.1 MM 55.0-65.0 TGH FIBRINOLYSIS (BEAKER) (test fmha=0300) 0.0 % 0.0-5.0 TROPONIN [id number] 19:01:00* Test Item Value Reference Range Comments TROPONIN I (BEAKER) (test vgcz=220) 1.83 ng/mL 0.00-0.03 Effective 09/06/2014: Reference Range ChangeNew: 0.00-0.03 Previous 0.00-0.15T roponin I (TnI) levels must be interpreted in the context of the presenting symp toms and the clinical findings. Elevated TnI levels indicate myocardial damage, but are not specific for ischemic heart disease. Elevated TnI levels are seen in patients with other cardiac conditions (including myocarditis and congestive he art failure), and slight TnI elevations occur in patients with other conditions, including sepsis, renal failure, acidosis, acute neurological disease, and pers istent tachyarrhythmia.CREATINE KINASE (CK), TOTAL AND [id number] 18:50:00* Test Item Value Reference Range Comments CREATINE KINASE TOTAL (BEAKER) (test czrz=919) 191 U/L 29-200 CREATINE KINASE-MB (BEAKER) (test kyus=809) 11.6 ng/mL 0.0-6.6 CREATINE KINASE-MB INDEX (BEAKER) (test cacl=016) 6.1 % Effective 09/06/2014: CK-MB Reference Range ChangeNew: 0.0-6.6 Previous: 0.0- 4.9CK-MB Reference Range:<6.7 Normal6.7-10.0 Borderline>10.0 Abnormal [id number] 18:41:00* Test Item Value Reference Range Comments PHOSPHORUS (BEAKER) (test xzii=975) 3.5 mg/dL 2.3-4.7 BASIC METABOLIC [id number] 18:41:00* Test Item Value Reference Range Comments SODIUM (BEAKER) (test pqbh=787) 140 meq/L 136-145 POTASSIUM (BEAKER) (test vfoz=841) 3.9 meq/L 3.5-5.1 CHLORIDE (BEAKER) (test zaqy=287) 113 meq/L 98-107 CO2 (BEAKER) (test sycm=534) 19 meq/L 22-29 BLOOD UREA NITROGEN (BEAKER) (test ljhv=719) 17 mg/dL 7-21 CREATININE (BEAKER) (test rkdg=162) 0.76 mg/dL 0.57-1.25 GLUCOSE RANDOM (BEAKER) (test ywyq=410) 238 mg/dL 70-105 CALCIUM (BEAKER) (test gwkb=782) 8.0 mg/dL 8.4-10.2 EGFR (BEAKER) (test qbio=4118) 79 mL/min/1.73 sq m ESTIMATED GFR IS NOT ACCURATE CREATININE CLEARANCE IN PREDICTING GLOMERULAR FILTRATION RATE. ESTIMATED GFR IS NOT APPLICABLE FOR DIALYSIS PATIENTS. [id number] 18:41:00* Test Item Value Reference Range Comments PARTIAL THROMBOPLASTIN TIME (BEAKER) (test kcub=622) 38.8 seconds 22.5-36.0 PROTHROMBIN TIME/[id number] 18:40:00* Test Item Value Reference Range Comments PROTIME (BEAKER) (test xegl=865) 18.3 seconds 11.7-14.7 INR (BEAKER) (test sqte=722) 1.5 <=5.9 RECOMMENDED COUMADIN/WARFARIN INR THERAPY RANGESSTANDARD DOSE: 2.0 - 3.0 Inclu taylor: PROPHYLAXIS for venous thrombosis, systemic embolization; TREATMENT for benson ous thrombosis and/or pulmonary embolus.HIGH RISK: Target INR is 2.5-3.5 for pat ients with mechanical heart valves.LACTIC ACID, ARTERIAL, WHOLE [id number] 18:37:00* Test Item Value Reference Range Comments LACTATE BLOOD ARTERIAL (2) (BEAKER) (test uabm=6940) 3.8 mmol/L 0.5-2.2 Effective 02/21/2016: Units/Reference Range ChangeNew: 0.5-2.2 mmol/L Previous: 5 -20 mg/dLCBC W/PLT COUNT & AUTO [id number] 18:35:00* Test Item Value Reference Range Comments WHITE BLOOD CELL COUNT (BEAKER) (test kddw=099) 22.5 K/ L 3.5-10.5 RED BLOOD CELL COUNT (BEAKER) (test lidi=545) 4.00 M/ L 3.93-5.22 HEMOGLOBIN (BEAKER) (test xrws=276) 12.3 GM/DL 11.2-15.7 HEMATOCRIT (BEAKER) (test ueja=911) 38.2 % 34.1-44.9 MEAN CORPUSCULAR VOLUME (BEAKER) (test oryb=479) 95.5 fL 79.4-94.8 MEAN CORPUSCULAR HEMOGLOBIN (BEAKER) (test zudd=791) 30.8 pg 25.6-32.2 MEAN CORPUSCULAR HEMOGLOBIN CONC (BEAKER) (test efkq=669) 32.2 GM/DL 32.2-35.5 RED CELL DISTRIBUTION WIDTH (BEAKER) (test bkhp=371) 14.8 % 11.7-14.4 PLATELET COUNT (BEAKER) (test qdsu=580) 147 K/CU MM 150-450 MEAN PLATELET VOLUME (BEAKER) (test rphd=059) 11.5 fL 9.4-12.3 NUCLEATED RED BLOOD CELLS (BEAKER) (test tgtm=994) 0 /100 WBC 0-0 NEUTROPHILS RELATIVE PERCENT (BEAKER) (test esqq=023) 69 % LYMPHOCYTES RELATIVE PERCENT (BEAKER) (test lujy=221) 21 % MONOCYTES RELATIVE PERCENT (BEAKER) (test ewop=686) 8 % EOSINOPHILS RELATIVE PERCENT (BEAKER) (test kanw=010) 2 % BASOPHILS RELATIVE PERCENT (BEAKER) (test xqce=581) 0 % NEUTROPHILS ABSOLUTE COUNT (BEAKER) (test cwtt=256) 15.49 K/ L 1.56-6.13 LYMPHOCYTES ABSOLUTE COUNT (BEAKER) (test kkic=739) 4.65 K/ L 1.18-3.74 MONOCYTES ABSOLUTE COUNT (BEAKER) (test dnam=614) 1.69 K/ L 0.24-0.36 EOSINOPHILS ABSOLUTE COUNT (BEAKER) (test dkhq=586) 0.41 K/ L 0.04-0.36 BASOPHILS ABSOLUTE COUNT (BEAKER) (test rxmo=308) 0.10 K/ L 0.01-0.08 IMMATURE GRANULOCYTES-RELATIVE PERCENT (BEAKER) (test yyrq=6969) 1 % 0-1 OXYGEN SATURATION, [id number] 18:31:00* Test Item Value Reference Range Comments O2 SATURATION (MEASURED) (BEAKER) (test bdbg=8039) 73.5 % BLOOD GAS, [id number] 18:28:00* Test Item Value Reference Range Comments PH ARTERIAL (BEAKER) (test eenq=126) 7.26 7.35-7.45 PCO2 ARTERIAL (BEAKER) (test bbha=740) 43 mmHg 35-45 PO2 ARTERIAL (BEAKER) (test sftv=639) 116 mmHg 80-90 O2 SATURATION ARTERIAL (BEAKER) (test muis=595) 97.8 % 96.0-97.0 HCO3 ARTERIAL (BEAKER) (test izqu=525) 19 mmol/L 21-29 BASE EXCESS ARTERIAL (BEAKER) (test gkoo=726) -7.8 mmol/L -2.0-3.0 PATIENT TEMPERATURE (BEAKER) (test vrjm=1737) 36.4 C FIO2 (BEAKER) (test vwdn=3841) 60.0 % GLUCOSE-STAT [id number] 18:28:00* Test Item Value Reference Range Comments GLUCOSE RANDOM (BEAKER) (test ltcv=661) 228 mg/dL 70-110 HGB/HCT (H&H) - STAT [id number] 18:28:00* Test Item Value Reference Range Comments HEMOGLOBIN (BEAKER) (test kzal=125) 12.9 g/dL 12.0-15.0 HEMATOCRIT (BEAKER) (test whlj=408) 38.0 % 36.0-45.0 CALCIUM, [id number] 18:25:00* Test Item Value Reference Range Comments CALCIUM IONIZED (BEAKER) (test ldum=681) 1.18 mmol/L 1.12-1.27 PH, BLOOD (BEAKER) (test mkpd=6320) 7.26 SODIUM NA-STAT [id number] 18:22:00* Test Item Value Reference Range Comments SODIUM (BEAKER) (test dzou=367) 138 meq/L 135-148 POTASSIUM-STAT [id number] 18:22:00* Test Item Value Reference Range Comments POTASSIUM (BEAKER) (test brov=726) 3.6 meq/L 3.6-5.5 [id number] 17:37:00* Test Item Value Reference Range Comments ACTIVATED CLOTTING TIME (BEAKER) (test jiiw=117) 489 sec TESTED AT [place] [address] [id number] 17:37:00* Test Item Value Reference Range Comments ACTIVATED CLOTTING TIME (BEAKER) (test eozt=920) 340 sec TESTED AT [place] [address] [id number] 17:37:00* Test Item Value Reference Range Comments ACTIVATED CLOTTING TIME (BEAKER) (test ltle=440) 554 sec TESTED AT [place] [address] [id number] 17:37:00* Test Item Value Reference Range Comments ACTIVATED CLOTTING TIME (BEAKER) (test jmfe=337) > sec OUTSIDE MEASURING RANGETESTED AT [facility] [address] [place] [address] [id number] 17:37:00* Test Item Value Reference Range Comments ACTIVATED CLOTTING TIME (BEAKER) (test bswm=252) [address] [facility] [address] [facility] [address] PROTHROMBIN [id number] 17:08:00* Test Item Value Reference Range Comments PROTIME (BEAKER) (test pgws=732) 22.2 seconds 11.7-14.7 INR (BEAKER) (test jlwe=851) 1.9 <=5.9 RECOMMENDED COUMADIN/WARFARIN INR THERAPY RANGESSTANDARD DOSE: 2.0 - 3.0 Inclu taylor: PROPHYLAXIS for venous thrombosis, systemic embolization; TREATMENT for benson ous thrombosis and/or pulmonary embolus.HIGH RISK: Target INR is 2.5-3.5 for pat ients with mechanical heart valves.[id number] 17:08:00* Test Item Value Reference Range Comments FIBRINOGEN LEVEL (BEAKER) (test gpbp=469) 231 mg/dl 225-434 POTASSIUM-STAT [id number] 17:00:00* Test Item Value Reference Range Comments POTASSIUM (BEAKER) (test cwzs=796) 4.1 meq/L 3.6-5.5 PLATELET [id number] 17:00:00* Test Item Value Reference Range Comments PLATELET COUNT (BEAKER) (test jwpy=138) 151 K/CU MM 150-450 SODIUM NA-STAT [id number] 16:59:00* Test Item Value Reference Range Comments SODIUM (BEAKER) (test norv=535) 134 meq/L 135-148 GLUCOSE-STAT [id number] 16:57:00* Test Item Value Reference Range Comments GLUCOSE RANDOM (BEAKER) (test rvxz=217) 299 mg/dL 70-110 HGB/HCT (H&H) - STAT [id number] 16:57:00* Test Item Value Reference Range Comments HEMOGLOBIN (BEAKER) (test jaxz=146) 6.6 GM/DL 12.0-15.0 HEMATOCRIT (BEAKER) (test qoox=714) 96.1 % 36.0-45.0 BLOOD GAS, [id number] 16:56:00* Test Item Value Reference Range Comments PH ARTERIAL (BEAKER) (test ukxt=912) 7.30 7.35-7.45 PCO2 ARTERIAL (BEAKER) (test qnbb=005) 41 mm Hg 35-45 PO2 ARTERIAL (BEAKER) (test zlcn=531) 102 mm Hg 80-90 O2 SATURATION ARTERIAL (BEAKER) (test mogc=941) 97.4 % 96.0-97.0 HCO3 ARTERIAL (BEAKER) (test fgxl=600) 20 mmol/L 21-29 BASE EXCESS ARTERIAL (BEAKER) (test nvnt=342) -6.2 mmol/L -2.0-3.0 PATIENT TEMPERATURE (BEAKER) (test gyri=2998) 65.7 FIO2 (BEAKER) (test ydoi=4337) 60 CALCIUM, [id number] 16:54:00* Test Item Value Reference Range Comments CALCIUM IONIZED (BEAKER) (test shhd=562) 1.00 mmol/L 1.12-1.27 PH, BLOOD (BEAKER) (test hizb=7179) 7.28 SODIUM NA-STAT [id number] 16:08:00* Test Item Value Reference Range Comments SODIUM (BEAKER) (test ifan=777) 135 meq/L 135-148 POTASSIUM-STAT [id number] 16:08:00* Test Item Value Reference Range Comments POTASSIUM (BEAKER) (test elwk=865) 4.3 meq/L 3.6-5.5 BLOOD GAS, [id number] 16:08:00* Test Item Value Reference Range Comments PH ARTERIAL (BEAKER) (test tdmn=867) 7.40 7.35-7.45 PCO2 ARTERIAL (BEAKER) (test gfab=840) 37 mmHg 35-45 PO2 ARTERIAL (BEAKER) (test oaup=468) 298 mmHg 80-90 O2 SATURATION ARTERIAL (BEAKER) (test hjef=267) 99.7 % 96.0-97.0 HCO3 ARTERIAL (BEAKER) (test znkc=811) 22 mmol/L 21-29 BASE EXCESS ARTERIAL (BEAKER) (test rrxf=750) -2.5 mmol/L -2.0-3.0 PATIENT TEMPERATURE (BEAKER) (test qmgs=0347) 36.7 C FIO2 (BEAKER) (test itrq=8975) 65.0 % GLUCOSE-STAT [id number] 16:08:00* Test Item Value Reference Range Comments GLUCOSE RANDOM (BEAKER) (test hoym=799) 295 mg/dL 70-110 HGB/HCT (H&H) - STAT [id number] 16:08:00* Test Item Value Reference Range Comments HEMOGLOBIN (BEAKER) (test jnjg=327) 7.4 g/dL 12.0-15.0 HEMATOCRIT (BEAKER) (test rmha=517) 22.0 % 36.0-45.0 BLOOD GAS, [id number] 15:44:00* Test Item Value Reference Range Comments PH ARTERIAL (BEAKER) (test fpuw=344) 7.30 7.35-7.45 PCO2 ARTERIAL (BEAKER) (test hfcd=017) 42 mmHg 35-45 PO2 ARTERIAL (BEAKER) (test bdjj=421) 324 mmHg 80-90 O2 SATURATION ARTERIAL (BEAKER) (test kjtv=266) 99.7 % 96.0-97.0 HCO3 ARTERIAL (BEAKER) (test maga=236) 20 mmol/L 21-29 BASE EXCESS ARTERIAL (BEAKER) (test cgec=665) -5.9 mmol/L -2.0-3.0 PATIENT TEMPERATURE (BEAKER) (test vetq=3200) 36.6 C FIO2 (BEAKER) (test mbnj=8881) 65.0 % GLUCOSE-STAT [id number] 15:44:00* Test Item Value Reference Range Comments GLUCOSE RANDOM (BEAKER) (test izjm=270) 270 mg/dL 70-110 SODIUM NA-STAT [id number] 15:44:00* Test Item Value Reference Range Comments SODIUM (BEAKER) (test bfyw=247) 132 meq/L 135-148 HGB/HCT (H&H) - STAT [id number] 15:44:00* Test Item Value Reference Range Comments HEMOGLOBIN (BEAKER) (test xdbk=496) 7.3 g/dL 12.0-15.0 HEMATOCRIT (BEAKER) (test aiyj=916) 21.0 % 36.0-45.0 POTASSIUM-STAT [id number] 15:43:00* Test Item Value Reference Range Comments POTASSIUM (BEAKER) (test uayn=926) 4.0 meq/L 3.6-5.5 BLOOD GAS, [id number] 15:41:00* Test Item Value Reference Range Comments PH ARTERIAL (BEAKER) (test drmd=649) 7.34 7.35-7.45 PCO2 ARTERIAL (BEAKER) (test cjnh=989) 36 mmHg 35-45 PO2 ARTERIAL (BEAKER) (test apjt=582) 443 mmHg 80-90 O2 SATURATION ARTERIAL (BEAKER) (test fukx=085) 99.8 % 96.0-97.0 HCO3 ARTERIAL (BEAKER) (test pfhw=964) 19 mmol/L 21-29 BASE EXCESS ARTERIAL (BEAKER) (test zeqb=063) -6.4 mmol/L -2.0-3.0 PATIENT TEMPERATURE (BEAKER) (test qekj=7292) 35.9 C FIO2 (BEAKER) (test aqdc=6258) 80.0 % SODIUM NA-STAT [id number] 15:41:00* Test Item Value Reference Range Comments SODIUM (BEAKER) (test ilwb=811) 131 meq/L 135-148 GLUCOSE-STAT [id number] 15:41:00* Test Item Value Reference Range Comments GLUCOSE RANDOM (BEAKER) (test vcrs=450) 248 mg/dL 70-110 HGB/HCT (H&H) - STAT [id number] 15:41:00* Test Item Value Reference Range Comments HEMOGLOBIN (BEAKER) (test dlop=453) 6.4 g/dL 12.0-15.0 HEMATOCRIT (BEAKER) (test yefi=718) 19.0 % 36.0-45.0 POTASSIUM-STAT [id number] 15:35:00* Test Item Value Reference Range Comments POTASSIUM (BEAKER) (test bjxj=029) 3.9 meq/L 3.6-5.5 SODIUM NA-STAT [id number] 14:52:00* Test Item Value Reference Range Comments SODIUM (BEAKER) (test gdjl=705) 135 meq/L 135-148 POTASSIUM-STAT [id number] 14:52:00* Test Item Value Reference Range Comments POTASSIUM (BEAKER) (test saie=875) 3.5 meq/L 3.6-5.5 BLOOD GAS, [id number] 14:52:00* Test Item Value Reference Range Comments PH ARTERIAL (BEAKER) (test vawe=798) 7.37 7.35-7.45 PCO2 ARTERIAL (BEAKER) (test giqk=835) 36 mmHg 35-45 PO2 ARTERIAL (BEAKER) (test xtwb=458) 326 mmHg 80-90 O2 SATURATION ARTERIAL (BEAKER) (test tvrp=845) 99.7 % 96.0-97.0 HCO3 ARTERIAL (BEAKER) (test qxjp=054) 21 mmol/L 21-29 BASE EXCESS ARTERIAL (BEAKER) (test knbb=715) -4.7 mmol/L -2.0-3.0 PATIENT TEMPERATURE (BEAKER) (test tcgm=2013) 35.0 C FIO2 (BEAKER) (test tgzx=6102) 98.0 % GLUCOSE-STAT [id number] 14:52:00* Test Item Value Reference Range Comments GLUCOSE RANDOM (BEAKER) (test bbms=211) 218 mg/dL 70-110 HGB/HCT (H&H) - STAT [id number] 14:52:00* Test Item Value Reference Range Comments HEMOGLOBIN (BEAKER) (test arak=320) 9.7 g/dL 12.0-15.0 HEMATOCRIT (BEAKER) (test jpfg=351) 29.0 % 36.0-45.0 [id number] 14:48:00* Test Item Value Reference Range Comments ACTIVATED CLOTTING TIME (BEAKER) (test slky=124) 301 sec TESTED AT [place] [id number] 14:48:00* Test Item Value Reference Range Comments ACTIVATED CLOTTING TIME (BEAKER) (test ejsr=757) 357 sec TESTED AT [place] [id number] 14:48:00* Test Item Value Reference Range Comments ACTIVATED CLOTTING TIME (BEAKER) (test dipi=206) 400 sec TESTED AT [place] [id number] 14:48:00* Test Item Value Reference Range Comments ACTIVATED CLOTTING TIME (BEAKER) (test uzjj=200) 351 sec TESTED AT [place] [id number] 14:48:00* Test Item Value Reference Range Comments ACTIVATED CLOTTING TIME (BEAKER) (test ovgh=228) [address] [facility] [address] [facility] [address] [id number] 14:48:00* Test Item Value Reference Range Comments ACTIVATED CLOTTING TIME (BEAKER) (test zpha=325) [address] [facility] [address] [facility] [address] BLOOD GAS, [id number] 12:22:00* Test Item Value Reference Range Comments PH ARTERIAL (BEAKER) (test sfzr=047) 7.53 7.35-7.45 PCO2 ARTERIAL (BEAKER) (test dveh=470) 28 mmHg 35-45 PO2 ARTERIAL (BEAKER) (test xpor=472) 271 mmHg 80-90 O2 SATURATION ARTERIAL (BEAKER) (test dzfj=014) 99.7 % 96.0-97.0 HCO3 ARTERIAL (BEAKER) (test lhek=069) 23 mmol/L 21-29 BASE EXCESS ARTERIAL (BEAKER) (test ixte=998) 0.2 mmol/L -2.0-3.0 PATIENT TEMPERATURE (BEAKER) (test octg=0832) 35.0 C FIO2 (BEAKER) (test fafy=8067) 100.0 % GLUCOSE-STAT [id number] 12:22:00* Test Item Value Reference Range Comments GLUCOSE RANDOM (BEAKER) (test exlh=602) 195 mg/dL 70-110 SODIUM NA-STAT [id number] 12:22:00* Test Item Value Reference Range Comments SODIUM (BEAKER) (test ujsf=550) 131 meq/L 135-148 POTASSIUM-STAT [id number] 12:21:00* Test Item Value Reference Range Comments POTASSIUM (BEAKER) (test pnrt=859) 3.9 meq/L 3.6-5.5 HGB/HCT (H&H) - STAT [id number] 12:21:00* Test Item Value Reference Range Comments HEMOGLOBIN (BEAKER) (test abkc=876) 12.6 g/dL 12.0-15.0 HEMATOCRIT (BEAKER) (test thuu=570) 37.0 % 36.0-45.0 POCT-GLUCOSE [id number] 08:07:00* Test Item Value Reference Range Comments POC-GLUCOSE METER (BEAKER) (test wqaf=9234) 254 mg/dL 70-[address] [facility] [address] [facility] [address] [id number] 05:12:00* Test Item Value Reference Range Comments PHOSPHORUS (BEAKER) (test jvto=756) 4.1 mg/dL 2.3-4.7 [id number] 05:12:00* Test Item Value Reference Range Comments MAGNESIUM (BEAKER) (test rwsm=860) 2.1 mg/dL 1.6-2.6 BASIC METABOLIC [id number] 05:12:00* Test Item Value Reference Range Comments SODIUM (BEAKER) (test eogn=845) 135 meq/L 136-145 POTASSIUM (BEAKER) (test memq=558) 4.0 meq/L 3.5-5.1 CHLORIDE (BEAKER) (test kpxy=639) 100 meq/L 98-107 CO2 (BEAKER) (test xdhz=347) 23 meq/L 22-29 BLOOD UREA NITROGEN (BEAKER) (test sdna=467) 22 mg/dL 7-21 CREATININE (BEAKER) (test uyxq=314) 1.03 mg/dL 0.57-1.25 GLUCOSE RANDOM (BEAKER) (test ldda=844) 216 mg/dL 70-105 CALCIUM (BEAKER) (test okkm=116) 9.5 mg/dL 8.4-10.2 EGFR (BEAKER) (test jqbg=4977) 56 mL/min/1.73 sq m ESTIMATED GFR IS NOT ACCURATE CREATININE CLEARANCE IN PREDICTING GLOMERULAR FILTRATION RATE. ESTIMATED GFR IS NOT APPLICABLE FOR DIALYSIS PATIENTS. HEPATIC FUNCTION [id number] 05:12:00* Test Item Value Reference Range Comments TOTAL PROTEIN (BEAKER) (test xdoq=414) 7.4 gm/dL 6.0-8.3 ALBUMIN (BEAKER) (test iall=7769) 3.8 g/dL 3.5-5.0 BILIRUBIN TOTAL (BEAKER) (test fjhd=540) 0.6 mg/dL 0.2-1.2 BILIRUBIN DIRECT (BEAKER) (test ddny=280) 0.3 mg/dL 0.1-0.5 ALKALINE PHOSPHATASE (BEAKER) (test dixg=892) 123 U/L 40-150 AST (SGOT) (BEAKER) (test vhcq=337) 21 U/L 5-34 ALT (SGPT) (BEAKER) (test mofv=998) 16 U/L 6-55 [id number] 04:44:00* Test Item Value Reference Range Comments PARTIAL THROMBOPLASTIN TIME (BEAKER) (test zcpl=468) 53.6 seconds 22.5-36.0 PROTHROMBIN [id number] 04:43:00* Test Item Value Reference Range Comments PROTIME (BEAKER) (test jbhz=232) 13.9 seconds 11.7-14.7 INR (BEAKER) (test qzny=461) 1.1 <=5.9 RECOMMENDED COUMADIN/WARFARIN INR THERAPY RANGESSTANDARD DOSE: 2.0 - 3.0 Inclu taylor: PROPHYLAXIS for venous thrombosis, systemic embolization; TREATMENT for benson ous thrombosis and/or pulmonary embolus.HIGH RISK: Target INR is 2.5-3.5 for pat ients with mechanical heart valves.CBC W/PLT COUNT & AUTO [id number] 04:33:00* Test Item Value Reference Range Comments WHITE BLOOD CELL COUNT (BEAKER) (test jgjs=030) 12.3 K/ L 3.5-10.5 RED BLOOD CELL COUNT (BEAKER) (test dpuq=039) 3.90 M/ L 3.93-5.22 HEMOGLOBIN (BEAKER) (test vsow=912) 12.0 GM/DL 11.2-15.7 HEMATOCRIT (BEAKER) (test tvuj=180) 38.8 % 34.1-44.9 MEAN CORPUSCULAR VOLUME (BEAKER) (test otse=838) 99.5 fL 79.4-94.8 MEAN CORPUSCULAR HEMOGLOBIN (BEAKER) (test siyb=473) 30.8 pg 25.6-32.2 MEAN CORPUSCULAR HEMOGLOBIN CONC (BEAKER) (test qwlu=026) 30.9 GM/DL 32.2-35.5 RED CELL DISTRIBUTION WIDTH (BEAKER) (test hiyg=475) 13.7 % 11.7-14.4 PLATELET COUNT (BEAKER) (test uaqq=175) 231 K/CU MM 150-450 MEAN PLATELET VOLUME (BEAKER) (test tors=106) 11.8 fL 9.4-12.3 NUCLEATED RED BLOOD CELLS (BEAKER) (test zovb=450) 0 /100 WBC 0-0 NEUTROPHILS RELATIVE PERCENT (BEAKER) (test nhqm=622) 48 % LYMPHOCYTES RELATIVE PERCENT (BEAKER) (test ouid=242) 39 % MONOCYTES RELATIVE PERCENT (BEAKER) (test aynb=851) 6 % EOSINOPHILS RELATIVE PERCENT (BEAKER) (test yoct=377) 5 % BASOPHILS RELATIVE PERCENT (BEAKER) (test mwvb=180) 1 % NEUTROPHILS ABSOLUTE COUNT (BEAKER) (test hmgm=448) 5.96 K/ L 1.56-6.13 LYMPHOCYTES ABSOLUTE COUNT (BEAKER) (test vhfp=111) 4.86 K/ L 1.18-3.74 MONOCYTES ABSOLUTE COUNT (BEAKER) (test wwdm=481) 0.77 K/ L 0.24-0.36 EOSINOPHILS ABSOLUTE COUNT (BEAKER) (test zaso=094) 0.56 K/ L 0.04-0.36 BASOPHILS ABSOLUTE COUNT (BEAKER) (test xcmc=518) 0.12 K/ L 0.01-0.08 IMMATURE GRANULOCYTES-RELATIVE PERCENT (BEAKER) (test yzvu=3906) 1 % 0-1 POCT-GLUCOSE [id number] 21:25:00* Test Item Value Reference Range Comments POC-GLUCOSE METER (BEAKER) (test uyql=5082) 312 mg/dL 70-110 Notified FABIANA BROOKS/TESTED AT [facility] [address] [facility] [address] [id number] 21:20:00* Test Item Value Reference Range Comments PARTIAL THROMBOPLASTIN TIME (BEAKER) (test mmnt=854) 49.2 seconds 22.5-36.0 [id number] 20:54:00* Test Item Value Reference Range Comments MAGNESIUM (BEAKER) (test ltka=040) 2.4 mg/dL 1.6-2.6 Specimen slightly hemolyzed [id number] 20:54:00* Test Item Value Reference Range Comments POTASSIUM (BEAKER) (test udkx=168) 4.1 meq/L 3.5-5.1 Specimen slightly hemolyzed POCT-GLUCOSE [id number] 17:49:00* Test Item Value Reference Range Comments POC-GLUCOSE METER (BEAKER) (test mbzj=7821) 202 mg/dL 70-[address] [facility] [address] [facility] [address] [id number] 13:20:00* Test Item Value Reference Range Comments PARTIAL THROMBOPLASTIN TIME (BEAKER) (test bbvj=643) 48.6 seconds 22.5-36.0 POCT-GLUCOSE [id number] 11:35:00* Test Item Value Reference Range Comments POC-GLUCOSE METER (BEAKER) (test yibe=7775) 260 mg/dL 70-110 TESTED AT [address] [address] POCT-GLUCOSE [id number] 07:46:00* Test Item Value Reference Range Comments POC-GLUCOSE METER (BEAKER) (test yori=1570) 223 mg/dL 70-110 TESTED AT [address] [address] [id number] 05:11:00* Test Item Value Reference Range Comments MAGNESIUM (BEAKER) (test qkdj=176) 2.0 mg/dL 1.6-2.6 COMPREHENSIVE METABOLIC [id number] 05:11:00* Test Item Value Reference Range Comments TOTAL PROTEIN (BEAKER) (test vevs=840) 7.2 gm/dL 6.0-8.3 ALBUMIN (BEAKER) (test kjco=9368) 3.8 g/dL 3.5-5.0 ALKALINE PHOSPHATASE (BEAKER) (test uqwz=903) 109 U/L 40-150 BILIRUBIN TOTAL (BEAKER) (test yehj=817) 0.8 mg/dL 0.2-1.2 SODIUM (BEAKER) (test flei=339) 135 meq/L 136-145 POTASSIUM (BEAKER) (test fkjx=749) 4.1 meq/L 3.5-5.1 CHLORIDE (BEAKER) (test flmx=494) 102 meq/L 98-107 CO2 (BEAKER) (test ndbc=811) 23 meq/L 22-29 BLOOD UREA NITROGEN (BEAKER) (test gqpo=184) 23 mg/dL 7-21 CREATININE (BEAKER) (test vtzh=279) 1.18 mg/dL 0.57-1.25 GLUCOSE RANDOM (BEAKER) (test vqah=652) 225 mg/dL 70-105 CALCIUM (BEAKER) (test mbvy=787) 9.5 mg/dL 8.4-10.2 AST (SGOT) (BEAKER) (test qzub=967) 18 U/L 5-34 ALT (SGPT) (BEAKER) (test ocaf=046) 14 U/L 6-55 EGFR (BEAKER) (test qsrb=3194) 48 mL/min/1.73 sq m ESTIMATED GFR IS NOT ACCURATE CREATININE CLEARANCE IN PREDICTING GLOMERULAR FILTRATION RATE. ESTIMATED GFR IS NOT APPLICABLE FOR DIALYSIS PATIENTS. [id number] 04:37:00* Test Item Value Reference Range Comments PARTIAL THROMBOPLASTIN TIME (BEAKER) (test ekss=436) 49.6 seconds 22.5-36.0 CBC W/PLT COUNT & AUTO [id number] 04:36:00* Test Item Value Reference Range Comments WHITE BLOOD CELL COUNT (BEAKER) (test kumq=818) 11.4 K/ L 3.5-10.5 RED BLOOD CELL COUNT (BEAKER) (test hmhn=869) 4.07 M/ L 3.93-5.22 HEMOGLOBIN (BEAKER) (test vewt=837) 12.7 GM/DL 11.2-15.7 HEMATOCRIT (BEAKER) (test zfff=756) 39.6 % 34.1-44.9 MEAN CORPUSCULAR VOLUME (BEAKER) (test olze=112) 97.3 fL 79.4-94.8 MEAN CORPUSCULAR HEMOGLOBIN (BEAKER) (test wvdc=156) 31.2 pg 25.6-32.2 MEAN CORPUSCULAR HEMOGLOBIN CONC (BEAKER) (test nooh=226) 32.1 GM/DL 32.2-35.5 RED CELL DISTRIBUTION WIDTH (BEAKER) (test lrjq=986) 14.1 % 11.7-14.4 PLATELET COUNT (BEAKER) (test ycfe=885) 194 K/CU MM 150-450 MEAN PLATELET VOLUME (BEAKER) (test futf=240) 11.7 fL 9.4-12.3 NUCLEATED RED BLOOD CELLS (BEAKER) (test xuse=786) 0 /100 WBC 0-0 NEUTROPHILS RELATIVE PERCENT (BEAKER) (test ztmm=694) 42 % LYMPHOCYTES RELATIVE PERCENT (BEAKER) (test wxoj=809) 46 % MONOCYTES RELATIVE PERCENT (BEAKER) (test oyid=487) 7 % EOSINOPHILS RELATIVE PERCENT (BEAKER) (test wcak=446) 4 % BASOPHILS RELATIVE PERCENT (BEAKER) (test fgys=580) 1 % NEUTROPHILS ABSOLUTE COUNT (BEAKER) (test phlb=690) 4.78 K/ L 1.56-6.13 LYMPHOCYTES ABSOLUTE COUNT (BEAKER) (test mlys=251) 5.26 K/ L 1.18-3.74 MONOCYTES ABSOLUTE COUNT (BEAKER) (test wwuk=352) 0.79 K/ L 0.24-0.36 EOSINOPHILS ABSOLUTE COUNT (BEAKER) (test mssz=977) 0.43 K/ L 0.04-0.36 BASOPHILS ABSOLUTE COUNT (BEAKER) (test qsfz=088) 0.11 K/ L 0.01-0.08 IMMATURE GRANULOCYTES-RELATIVE PERCENT (BEAKER) (test wobx=1069) 1 % 0-1 POCT-GLUCOSE [id number] 21:18:00* Test Item Value Reference Range Comments POC-GLUCOSE METER (BEAKER) (test uxbg=2939) 299 mg/dL 70-110 TESTED AT [place] [id number] 20:02:00* Test Item Value Reference Range Comments PARTIAL THROMBOPLASTIN TIME (BEAKER) (test jays=928) 42.2 seconds 22.5-36.0 POCT-GLUCOSE [id number] 17:23:00* Test Item Value Reference Range Comments POC-GLUCOSE METER (BEAKER) (test jgkf=2804) 212 mg/dL 70-110 TESTED AT [address] [address] POCT-GLUCOSE [id number] 11:41:00* Test Item Value Reference Range Comments POC-GLUCOSE METER (BEAKER) (test jdpn=6378) 194 mg/dL 70-110 TESTED AT [address] [address] [id number] 10:31:00* Test Item Value Reference Range Comments PARTIAL THROMBOPLASTIN TIME (BEAKER) (test eavl=713) 55.1 seconds 22.5-36.0 POCT-GLUCOSE [id number] 08:31:00* Test Item Value Reference Range Comments POC-GLUCOSE METER (BEAKER) (test dsxd=4670) 156 mg/dL 70-110 TESTED AT [address] [address] CBC W/PLT COUNT & AUTO [id number] 08:06:00* Test Item Value Reference Range Comments WHITE BLOOD CELL COUNT (BEAKER) (test exsz=998) 11.6 K/ L 3.5-10.5 RED BLOOD CELL COUNT (BEAKER) (test hbsd=741) 3.86 M/ L 3.93-5.22 HEMOGLOBIN (BEAKER) (test puym=341) 12.1 GM/DL 11.2-15.7 HEMATOCRIT (BEAKER) (test wdji=791) 38.6 % 34.1-44.9 MEAN CORPUSCULAR VOLUME (BEAKER) (test wyvx=829) 100.0 fL 79.4-94.8 MEAN CORPUSCULAR HEMOGLOBIN (BEAKER) (test dfeb=840) 31.3 pg 25.6-32.2 MEAN CORPUSCULAR HEMOGLOBIN CONC (BEAKER) (test atqh=128) 31.3 GM/DL 32.2-35.5 RED CELL DISTRIBUTION WIDTH (BEAKER) (test czus=343) 14.1 % 11.7-14.4 PLATELET COUNT (BEAKER) (test mqnc=664) 256 K/CU MM 150-450 MEAN PLATELET VOLUME (BEAKER) (test kfmq=118) 11.3 fL 9.4-12.3 NUCLEATED RED BLOOD CELLS (BEAKER) (test aqzu=333) 0 /100 WBC 0-0 NEUTROPHILS RELATIVE PERCENT (BEAKER) (test vvsk=762) 44 % LYMPHOCYTES RELATIVE PERCENT (BEAKER) (test zdae=436) 47 % MONOCYTES RELATIVE PERCENT (BEAKER) (test xbdc=720) 5 % EOSINOPHILS RELATIVE PERCENT (BEAKER) (test fklr=694) 3 % BASOPHILS RELATIVE PERCENT (BEAKER) (test czxw=782) 1 % NEUTROPHILS ABSOLUTE COUNT (BEAKER) (test rwkn=051) 5.12 K/ L 1.56-6.13 LYMPHOCYTES ABSOLUTE COUNT (BEAKER) (test rceb=858) 5.48 K/ L 1.18-3.74 MONOCYTES ABSOLUTE COUNT (BEAKER) (test mgtl=678) 0.59 K/ L 0.24-0.36 EOSINOPHILS ABSOLUTE COUNT (BEAKER) (test cuvv=397) 0.30 K/ L 0.04-0.36 BASOPHILS ABSOLUTE COUNT (BEAKER) (test xutb=482) 0.07 K/ L 0.01-0.08 IMMATURE GRANULOCYTES-RELATIVE PERCENT (BEAKER) (test ptix=2429) 0 % 0-1 (MANUAL DIFFERENTIAL)2017-06-05 08:06:00* Test Item Value Reference Range Comments TOTAL COUNTED (BEAKER) (test fpmz=5384) WBC MORPHOLOGY (BEAKER) (test kgdc=885) Normal PLT MORPHOLOGY (BEAKER) (test dtaz=348) Normal MACROCYTES (BEAKER) (test xdti=145) 1+ few BASIC METABOLIC [id number] 04:17:00* Test Item Value Reference Range Comments SODIUM (BEAKER) (test fctq=398) 139 meq/L 136-145 POTASSIUM (BEAKER) (test vqry=381) 3.7 meq/L 3.5-5.1 CHLORIDE (BEAKER) (test vlmu=251) 107 meq/L 98-107 CO2 (BEAKER) (test xnai=125) 22 meq/L 22-29 BLOOD UREA NITROGEN (BEAKER) (test yegm=416) 17 mg/dL 7-21 CREATININE (BEAKER) (test uiew=474) 0.97 mg/dL 0.57-1.25 GLUCOSE RANDOM (BEAKER) (test fpxk=389) 138 mg/dL 70-105 CALCIUM (BEAKER) (test wirf=366) 9.4 mg/dL 8.4-10.2 EGFR (BEAKER) (test kwpk=7440) 60 mL/min/1.73 sq m ESTIMATED GFR IS NOT ACCURATE CREATININE CLEARANCE IN PREDICTING GLOMERULAR FILTRATION RATE. ESTIMATED GFR IS NOT APPLICABLE FOR DIALYSIS PATIENTS. [id number] 04:02:00* Test Item Value Reference Range Comments PARTIAL THROMBOPLASTIN TIME (BEAKER) (test sktr=515) 64.9 seconds 22.5-36.0 Prior to initiating heparinPOCT-GLUCOSE [id number] 22:35:00* Test Item Value Reference Range Comments POC-GLUCOSE METER (BEAKER) (test xixi=0339) 284 mg/dL 70-[address] [facility] [address] [facility] [address] POCT-GLUCOSE [id number] 12:27:00* Test Item Value Reference Range Comments POC-GLUCOSE METER (BEAKER) (test dlgz=2553) 250 mg/dL 70-[address] [facility] [address] [facility] [address] POCT-GLUCOSE [id number] 07:33:00* Test Item Value Reference Range Comments POC-GLUCOSE METER (BEAKER) (test ewgt=3812) 169 mg/dL 70-[address] [facility] [address] [facility] [address] [id number] 06:45:00* Test Item Value Reference Range Comments MAGNESIUM (BEAKER) (test xuqt=174) 2.1 mg/dL 1.6-2.6 Specimen slightly hemolyzed BASIC METABOLIC [id number] 06:45:00* Test Item Value Reference Range Comments SODIUM (BEAKER) (test pjxg=074) 142 meq/L 136-145 POTASSIUM (BEAKER) (test sksd=578) 3.9 meq/L 3.5-5.1 Specimen slightly hemolyzed CHLORIDE (BEAKER) (test nipz=437) 108 meq/L 98-107 CO2 (BEAKER) (test oncp=939) 22 meq/L 22-29 BLOOD UREA NITROGEN (BEAKER) (test ochv=050) 17 mg/dL 7-21 CREATININE (BEAKER) (test kzdq=662) 0.95 mg/dL 0.57-1.25 Specimen slightly hemolyzed GLUCOSE RANDOM (BEAKER) (test vvwm=477) 170 mg/dL 70-105 CALCIUM (BEAKER) (test eapn=564) 9.6 mg/dL 8.4-10.2 EGFR (BEAKER) (test pinr=1597) 61 mL/min/1.73 sq m ESTIMATED GFR IS NOT ACCURATE CREATININE CLEARANCE IN PREDICTING GLOMERULAR FILTRATION RATE. ESTIMATED GFR IS NOT APPLICABLE FOR DIALYSIS PATIENTS. LIPID [id number] 06:45:00* Test Item Value Reference Range Comments TRIGLYCERIDES (BEAKER) (test jsav=701) 129 mg/dL Specimen slightly hemolyzed CHOLESTEROL (BEAKER) (test rruq=743) 133 mg/dL Specimen slightly hemolyzed HDL CHOLESTEROL (BEAKER) (test gtxl=171) 26 mg/dL LDL CHOLESTEROL CALCULATED (BEAKER) (test oeco=948) 81 mg/dL Triglyceride Reference Range: Low Risk <150 Borderline 150-199 High Risk 200-499 Very High Risk >=500Cholesterol Reference Range: Low Risk <200 Borderline 200-239 High Risk >240HDL Cholesterol Reference Range: Low Risk >=60 High Risk <40LDL Cholesterol Reference Range: Optimal <100 Near Optimal 100-129 Borderline 130-159 High 160-189 Very High >=190 HEPATIC FUNCTION [id number] 06:45:00* Test Item Value Reference Range Comments TOTAL PROTEIN (BEAKER) (test pfrm=613) 7.3 gm/dL 6.0-8.3 Specimen slightly hemolyzed ALBUMIN (BEAKER) (test ahce=0933) 3.7 g/dL 3.5-5.0 Specimen slightly hemolyzed BILIRUBIN TOTAL (BEAKER) (test ikoi=367) 0.5 mg/dL 0.2-1.2 Specimen slightly hemolyzed BILIRUBIN DIRECT (BEAKER) (test gtjt=121) 0.2 mg/dL 0.1-0.5 Specimen slightly hemolyzed ALKALINE PHOSPHATASE (BEAKER) (test lalj=310) 103 U/L 40-150 AST (SGOT) (BEAKER) (test vapi=624) 18 U/L 5-34 Specimen slightly hemolyzed ALT (SGPT) (BEAKER) (test bhww=730) 12 U/L 6-55 Specimen slightly hemolyzed CBC W/PLT COUNT & AUTO [id number] 06:28:00* Test Item Value Reference Range Comments WHITE BLOOD CELL COUNT (BEAKER) (test imyw=140) 9.3 K/ L 3.5-10.5 RED BLOOD CELL COUNT (BEAKER) (test mhum=818) 3.97 M/ L 3.93-5.22 HEMOGLOBIN (BEAKER) (test yami=929) 12.5 GM/DL 11.2-15.7 HEMATOCRIT (BEAKER) (test rhnc=738) 39.6 % 34.1-44.9 MEAN CORPUSCULAR VOLUME (BEAKER) (test dulq=603) 99.7 fL 79.4-94.8 MEAN CORPUSCULAR HEMOGLOBIN (BEAKER) (test rspr=977) 31.5 pg 25.6-32.2 MEAN CORPUSCULAR HEMOGLOBIN CONC (BEAKER) (test abeh=426) 31.6 GM/DL 32.2-35.5 RED CELL DISTRIBUTION WIDTH (BEAKER) (test aqqv=532) 14.0 % 11.7-14.4 PLATELET COUNT (BEAKER) (test xrme=065) 221 K/CU MM 150-450 MEAN PLATELET VOLUME (BEAKER) (test srgp=252) 11.4 fL 9.4-12.3 NUCLEATED RED BLOOD CELLS (BEAKER) (test mzjp=125) 0 /100 WBC 0-0 NEUTROPHILS RELATIVE PERCENT (BEAKER) (test lxtt=672) 64 % LYMPHOCYTES RELATIVE PERCENT (BEAKER) (test iwye=619) 29 % MONOCYTES RELATIVE PERCENT (BEAKER) (test cltw=431) 5 % EOSINOPHILS RELATIVE PERCENT (BEAKER) (test ftjy=334) 2 % BASOPHILS RELATIVE PERCENT (BEAKER) (test zyym=768) 1 % NEUTROPHILS ABSOLUTE COUNT (BEAKER) (test cfac=783) 5.89 K/ L 1.56-6.13 LYMPHOCYTES ABSOLUTE COUNT (BEAKER) (test cmzg=732) 2.64 K/ L 1.18-3.74 MONOCYTES ABSOLUTE COUNT (BEAKER) (test cznx=011) 0.44 K/ L 0.24-0.36 EOSINOPHILS ABSOLUTE COUNT (BEAKER) (test zjcj=619) 0.20 K/ L 0.04-0.36 BASOPHILS ABSOLUTE COUNT (BEAKER) (test hcuj=721) 0.06 K/ L 0.01-0.08 IMMATURE GRANULOCYTES-RELATIVE PERCENT (BEAKER) (test lxju=6921) 0 % 0-1 POCT-GLUCOSE [id number] 22:36:00* Test Item Value Reference Range Comments POC-GLUCOSE METER (BEAKER) (test hlau=8946) 256 mg/dL 70-[address] [facility] [address] [facility] [address] CBC W/PLT COUNT & AUTO [id number] 12:56:00* Test Item Value Reference Range Comments WHITE BLOOD CELL COUNT (BEAKER) (test ezrz=559) 7.8 K/ L 3.5-10.5 RED BLOOD CELL COUNT (BEAKER) (test bhlv=930) 3.59 M/ L 3.93-5.22 HEMOGLOBIN (BEAKER) (test blgu=471) 11.1 GM/DL 11.2-15.7 HEMATOCRIT (BEAKER) (test lmai=449) 37.2 % 34.1-44.9 MEAN CORPUSCULAR VOLUME (BEAKER) (test dbcv=637) 103.6 fL 79.4-94.8 MEAN CORPUSCULAR HEMOGLOBIN (BEAKER) (test pvzr=805) 30.9 pg 25.6-32.2 MEAN CORPUSCULAR HEMOGLOBIN CONC (BEAKER) (test csih=022) 29.8 GM/DL 32.2-35.5 RED CELL DISTRIBUTION WIDTH (BEAKER) (test sjmd=927) 14.0 % 11.7-14.4 PLATELET COUNT (BEAKER) (test litp=802) 219 K/CU MM 150-450 MEAN PLATELET VOLUME (BEAKER) (test abjj=137) 11.7 fL 9.4-12.3 NUCLEATED RED BLOOD CELLS (BEAKER) (test vydz=823) 0 /100 WBC 0-0 NEUTROPHILS RELATIVE PERCENT (BEAKER) (test grjs=253) 45 % LYMPHOCYTES RELATIVE PERCENT (BEAKER) (test bohm=318) 43 % MONOCYTES RELATIVE PERCENT (BEAKER) (test lqju=756) 7 % EOSINOPHILS RELATIVE PERCENT (BEAKER) (test oyqq=732) 4 % BASOPHILS RELATIVE PERCENT (BEAKER) (test ssqi=960) 1 % NEUTROPHILS ABSOLUTE COUNT (BEAKER) (test sssf=328) 3.54 K/ L 1.56-6.13 LYMPHOCYTES ABSOLUTE COUNT (BEAKER) (test dljn=548) 3.36 K/ L 1.18-3.74 MONOCYTES ABSOLUTE COUNT (BEAKER) (test tvmy=253) 0.57 K/ L 0.24-0.36 EOSINOPHILS ABSOLUTE COUNT (BEAKER) (test wgmq=876) 0.30 K/ L 0.04-0.36 BASOPHILS ABSOLUTE COUNT (BEAKER) (test nnsl=540) 0.05 K/ L 0.01-0.08 IMMATURE GRANULOCYTES-RELATIVE PERCENT (BEAKER) (test txnc=1688) 0 % 0-1 (MANUAL DIFFERENTIAL)2017-06-03 12:56:00* Test Item Value Reference Range Comments TOTAL COUNTED (BEAKER) (test jsss=2350) WBC MORPHOLOGY (BEAKER) (test mjnu=971) Normal PLT MORPHOLOGY (BEAKER) (test pnil=361) Normal RBC MORPHOLOGY (BEAKER) (test xtwt=860) Normal POCT-GLUCOSE [id number] 12:25:00* Test Item Value Reference Range Comments POC-GLUCOSE METER (BEAKER) (test krms=4862) 219 mg/dL 70-[address] [facility] [address] [facility] [address] POCT-GLUCOSE [id number] 07:44:00* Test Item Value Reference Range Comments POC-GLUCOSE METER (BEAKER) (test wnpx=7692) 136 mg/dL 70-[address] [facility] [address] [facility] [address] [id number] 05:39:00* Test Item Value Reference Range Comments MAGNESIUM (BEAKER) (test ytpw=098) 2.2 mg/dL 1.6-2.6 Specimen slightly hemolyzed LIPID [id number] 05:39:00* Test Item Value Reference Range Comments TRIGLYCERIDES (BEAKER) (test xzhp=452) 99 mg/dL Specimen slightly hemolyzed CHOLESTEROL (BEAKER) (test gogw=856) 115 mg/dL Specimen slightly hemolyzed HDL CHOLESTEROL (BEAKER) (test asgm=905) 26 mg/dL LDL CHOLESTEROL CALCULATED (BEAKER) (test brpo=831) 69 mg/dL Triglyceride Reference Range: Low Risk <150 Borderline 150-199 High Risk 200-499 Very High Risk >=500Cholesterol Reference Range: Low Risk <200 Borderline 200-239 High Risk >240HDL Cholesterol Reference Range: Low Risk >=60 High Risk <40LDL Cholesterol Reference Range: Optimal <100 Near Optimal 100-129 Borderline 130-159 High 160-189 Very High >=190 COMPREHENSIVE METABOLIC [id number] 05:39:00* Test Item Value Reference Range Comments TOTAL PROTEIN (BEAKER) (test qcgu=737) 6.5 gm/dL 6.0-8.3 Specimen slightly hemolyzed ALBUMIN (BEAKER) (test oikj=5031) 3.3 g/dL 3.5-5.0 Specimen slightly hemolyzed ALKALINE PHOSPHATASE (BEAKER) (test iqoo=003) 103 U/L 40-150 BILIRUBIN TOTAL (BEAKER) (test khcg=893) 0.5 mg/dL 0.2-1.2 Specimen slightly hemolyzed SODIUM (BEAKER) (test euva=247) 140 meq/L 136-145 POTASSIUM (BEAKER) (test eeth=939) 4.1 meq/L 3.5-5.1 Specimen slightly hemolyzed CHLORIDE (BEAKER) (test pzqg=943) 111 meq/L 98-107 CO2 (BEAKER) (test wxqu=820) 19 meq/L 22-29 BLOOD UREA NITROGEN (BEAKER) (test gnlb=298) 14 mg/dL 7-21 CREATININE (BEAKER) (test zket=796) 1.00 mg/dL 0.57-1.25 Specimen slightly hemolyzed GLUCOSE RANDOM (BEAKER) (test npxg=378) 188 mg/dL 70-105 CALCIUM (BEAKER) (test zsjr=217) 9.0 mg/dL 8.4-10.2 AST (SGOT) (BEAKER) (test qbtl=460) 21 U/L 5-34 Specimen slightly hemolyzed ALT (SGPT) (BEAKER) (test yscb=164) 15 U/L 6-55 Specimen slightly hemolyzed EGFR (BEAKER) (test gdro=8997) 58 mL/min/1.73 sq m ESTIMATED GFR IS NOT ACCURATE CREATININE CLEARANCE IN PREDICTING GLOMERULAR FILTRATION RATE. ESTIMATED GFR IS NOT APPLICABLE FOR DIALYSIS PATIENTS. HEPATIC FUNCTION [id number] 05:39:00* Test Item Value Reference Range Comments TOTAL PROTEIN (BEAKER) (test qfsi=493) 6.5 gm/dL 6.0-8.3 Specimen slightly hemolyzed ALBUMIN (BEAKER) (test oggx=3138) 3.3 g/dL 3.5-5.0 Specimen slightly hemolyzed BILIRUBIN TOTAL (BEAKER) (test xcgf=027) 0.5 mg/dL 0.2-1.2 Specimen slightly hemolyzed BILIRUBIN DIRECT (BEAKER) (test cztw=081) 0.2 mg/dL 0.1-0.5 Specimen slightly hemolyzed ALKALINE PHOSPHATASE (BEAKER) (test mgbq=522) 103 U/L 40-150 AST (SGOT) (BEAKER) (test bmix=335) 21 U/L 5-34 Specimen slightly hemolyzed ALT (SGPT) (BEAKER) (test fvqn=762) 15 U/L 6-55 Specimen slightly hemolyzed POCT-GLUCOSE [id number] 21:30:00* Test Item Value Reference Range Comments POC-GLUCOSE METER (BEAKER) (test lbpy=9821) 173 mg/dL 70-[address] [facility] [address] [facility] [address] HEMOGLOBIN [id number] 17:27:00* Test Item Value Reference Range Comments HEMOGLOBIN A1C (BEAKER) (test esln=499) 7.6 % 4.3-6.1 POCT-GLUCOSE [id number] 16:35:00* Test Item Value Reference Range Comments POC-GLUCOSE METER (BEAKER) (test nore=9390) 233 mg/dL 70-[address] [facility] [address] [facility] [address] TROPONIN [id number] 13:56:00* Test Item Value Reference Range Comments TROPONIN I (BEAKER) (test cxiv=911) 0.11 ng/mL 0.00-0.03 Effective 09/06/2014: Reference Range ChangeNew: 0.00-0.03 Previous 0.00-0.15T roponin I (TnI) levels must be interpreted in the context of the presenting symp toms and the clinical findings. Elevated TnI levels indicate myocardial damage, but are not specific for ischemic heart disease. Elevated TnI levels are seen in patients with other cardiac conditions (including myocarditis and congestive he art failure), and slight TnI elevations occur in patients with other conditions, including sepsis, renal failure, acidosis, acute neurological disease, and pers istent tachyarrhythmia.CBC W/PLT COUNT & AUTO [id number] 11:07:00* Test Item Value Reference Range Comments WHITE BLOOD CELL COUNT (BEAKER) (test irwe=441) 8.5 K/ L 3.5-10.5 RED BLOOD CELL COUNT (BEAKER) (test jrru=295) 3.41 M/ L 3.93-5.22 HEMOGLOBIN (BEAKER) (test dkuf=999) 10.6 GM/DL 11.2-15.7 HEMATOCRIT (BEAKER) (test ejtd=176) 34.4 % 34.1-44.9 MEAN CORPUSCULAR VOLUME (BEAKER) (test cizd=896) 100.9 fL 79.4-94.8 MEAN CORPUSCULAR HEMOGLOBIN (BEAKER) (test vkol=572) 31.1 pg 25.6-32.2 MEAN CORPUSCULAR HEMOGLOBIN CONC (BEAKER) (test fltl=604) 30.8 GM/DL 32.2-35.5 RED CELL DISTRIBUTION WIDTH (BEAKER) (test pfca=418) 14.1 % 11.7-14.4 PLATELET COUNT (BEAKER) (test tjfq=275) 242 K/CU MM 150-450 MEAN PLATELET VOLUME (BEAKER) (test uhus=907) 11.5 fL 9.4-12.3 NUCLEATED RED BLOOD CELLS (BEAKER) (test gkhj=858) 0 /100 WBC 0-0 NEUTROPHILS RELATIVE PERCENT (BEAKER) (test todq=360) 43 % LYMPHOCYTES RELATIVE PERCENT (BEAKER) (test pemb=743) 46 % MONOCYTES RELATIVE PERCENT (BEAKER) (test iekx=065) 5 % EOSINOPHILS RELATIVE PERCENT (BEAKER) (test nnnd=481) 5 % BASOPHILS RELATIVE PERCENT (BEAKER) (test gbyh=767) 1 % NEUTROPHILS ABSOLUTE COUNT (BEAKER) (test fdbk=623) 3.65 K/ L 1.56-6.13 LYMPHOCYTES ABSOLUTE COUNT (BEAKER) (test unul=818) 3.93 K/ L 1.18-3.74 MONOCYTES ABSOLUTE COUNT (BEAKER) (test ntwh=190) 0.41 K/ L 0.24-0.36 EOSINOPHILS ABSOLUTE COUNT (BEAKER) (test huvr=732) 0.39 K/ L 0.04-0.36 BASOPHILS ABSOLUTE COUNT (BEAKER) (test ucpj=882) 0.05 K/ L 0.01-0.08 IMMATURE GRANULOCYTES-RELATIVE PERCENT (BEAKER) (test pjdm=4327) 1 % 0-1 (MANUAL DIFFERENTIAL)2017-06-02 11:07:00* Test Item Value Reference Range Comments TOTAL COUNTED (BEAKER) (test qeop=0001) WBC MORPHOLOGY (BEAKER) (test oqrq=581) Normal PLT MORPHOLOGY (BEAKER) (test gcaf=506) Normal MACROCYTES (BEAKER) (test odtm=961) 1+ few CREATINE KINASE (CK), TOTAL AND [id number] 08:19:00* Test Item Value Reference Range Comments CREATINE KINASE TOTAL (BEAKER) (test scva=829) 48 U/L 29-200 CREATINE KINASE-MB (BEAKER) (test qnre=836) 0.9 ng/mL 0.0-6.6 CREATINE KINASE-MB INDEX (BEAKER) (test mkey=617) 1.9 % Effective 09/06/2014: CK-MB Reference Range ChangeNew: 0.0-6.6 Previous: 0.0- 4.9CK-MB Reference Range:<6.7 Normal6.7-10.0 Borderline>10.0 Abnormal TROPONIN [id number] 08:19:00* Test Item Value Reference Range Comments TROPONIN I (BEAKER) (test zkbn=759) 0.12 ng/mL 0.00-0.03 Effective 09/06/2014: Reference Range ChangeNew: 0.00-0.03 Previous 0.00-0.15T roponin I (TnI) levels must be interpreted in the context of the presenting symp toms and the clinical findings. Elevated TnI levels indicate myocardial damage, but are not specific for ischemic heart disease. Elevated TnI levels are seen in patients with other cardiac conditions (including myocarditis and congestive he art failure), and slight TnI elevations occur in patients with other conditions, including sepsis, renal failure, acidosis, acute neurological disease, and pers istent tachyarrhythmia.[id number] 05:52:00* Test Item Value Reference Range Comments MAGNESIUM (BEAKER) (test gggz=094) 2.2 mg/dL 1.6-2.6 BASIC METABOLIC [id number] 05:52:00* Test Item Value Reference Range Comments SODIUM (BEAKER) (test vjbj=479) 138 meq/L 136-145 POTASSIUM (BEAKER) (test nunu=982) 3.7 meq/L 3.5-5.1 CHLORIDE (BEAKER) (test joxl=272) 106 meq/L 98-107 CO2 (BEAKER) (test axrb=040) 22 meq/L 22-29 BLOOD UREA NITROGEN (BEAKER) (test fbsl=202) 13 mg/dL 7-21 CREATININE (BEAKER) (test wggk=376) 1.03 mg/dL 0.57-1.25 GLUCOSE RANDOM (BEAKER) (test bakr=605) 164 mg/dL 70-105 CALCIUM (BEAKER) (test hawo=841) 9.1 mg/dL 8.4-10.2 EGFR (BEAKER) (test bmwd=7340) 56 mL/min/1.73 sq m ESTIMATED GFR IS NOT ACCURATE CREATININE CLEARANCE IN PREDICTING GLOMERULAR FILTRATION RATE. ESTIMATED GFR IS NOT APPLICABLE FOR DIALYSIS PATIENTS. LIPID [id number] 05:52:00* Test Item Value Reference Range Comments TRIGLYCERIDES (BEAKER) (test mrpi=842) 108 mg/dL CHOLESTEROL (BEAKER) (test jdwq=786) 113 mg/dL HDL CHOLESTEROL (BEAKER) (test pokl=742) 26 mg/dL LDL CHOLESTEROL CALCULATED (BEAKER) (test zens=139) 65 mg/dL Triglyceride Reference Range: Low Risk <150 Borderline 150-199 High Risk 200-499 Very High Risk >=500Cholesterol Reference Range: Low Risk <200 Borderline 200-239 High Risk >240HDL Cholesterol Reference Range: Low Risk >=60 High Risk <40LDL Cholesterol Reference Range: Optimal <100 Near Optimal 100-129 Borderline 130-159 High 160-189 Very High >=190 HEPATIC FUNCTION [id number] 05:52:00* Test Item Value Reference Range Comments TOTAL PROTEIN (BEAKER) (test vhjw=017) 7.1 gm/dL 6.0-8.3 ALBUMIN (BEAKER) (test hlgq=4971) 3.9 g/dL 3.5-5.0 BILIRUBIN TOTAL (BEAKER) (test kyjd=741) 0.6 mg/dL 0.2-1.2 BILIRUBIN DIRECT (BEAKER) (test cidz=407) 0.3 mg/dL 0.1-0.5 ALKALINE PHOSPHATASE (BEAKER) (test dbda=293) 106 U/L 40-150 AST (SGOT) (BEAKER) (test lxww=952) 16 U/L 5-34 ALT (SGPT) (BEAKER) (test knwl=841) 11 U/L 6-55 CREATINE KINASE (CK), TOTAL AND [id number] 23:57:00* Test Item Value Reference Range Comments CREATINE KINASE TOTAL (BEAKER) (test kuvb=000) 51 U/L 29-200 CREATINE KINASE-MB (BEAKER) (test gnon=534) 0.8 ng/mL 0.0-6.6 CREATINE KINASE-MB INDEX (BEAKER) (test qnhj=695) 1.6 % Effective 09/06/2014: CK-MB Reference Range ChangeNew: 0.0-6.6 Previous: 0.0- 4.9CK-MB Reference Range:<6.7 Normal6.7-10.0 Borderline>10.0 Abnormal TROPONIN [id number] 23:57:00* Test Item Value Reference Range Comments TROPONIN I (BEAKER) (test vget=998) 0.09 ng/mL 0.00-0.03 Effective 09/06/2014: Reference Range ChangeNew: 0.00-0.03 Previous 0.00-0.15T roponin I (TnI) levels must be interpreted in the context of the presenting symp toms and the clinical findings. Elevated TnI levels indicate myocardial damage, but are not specific for ischemic heart disease. Elevated TnI levels are seen in patients with other cardiac conditions (including myocarditis and congestive he art failure), and slight TnI elevations occur in patients with other conditions, including sepsis, renal failure, acidosis, acute neurological disease, and pers istent tachyarrhythmia.B-TYPE NATRIURETIC FACTOR (BNP)2017-06-01 23:54:00* Test Item Value Reference Range Comments B-TYPE NATRIURETIC PEPTIDE (BEAKER) (test bhvh=929) 2800 pg/mL 0-100 BASIC METABOLIC [id number] 23:51:00* Test Item Value Reference Range Comments SODIUM (BEAKER) (test lyav=901) 136 meq/L 136-145 POTASSIUM (BEAKER) (test caqg=761) 4.0 meq/L 3.5-5.1 Specimen slightly hemolyzed CHLORIDE (BEAKER) (test fooj=949) 104 meq/L 98-107 CO2 (BEAKER) (test fnjh=033) 21 meq/L 22-29 BLOOD UREA NITROGEN (BEAKER) (test lpmr=246) 13 mg/dL 7-21 CREATININE (BEAKER) (test unkt=526) 1.14 mg/dL 0.57-1.25 Specimen slightly hemolyzed GLUCOSE RANDOM (BEAKER) (test hosh=652) 171 mg/dL 70-105 CALCIUM (BEAKER) (test gcsk=893) 9.1 mg/dL 8.4-10.2 EGFR (BEAKER) (test cbli=1517) mL/min/1.73 sq m INSUFFICIENT CLINICAL DATA TO CALCULATE ESTIMATED GFR. PT/[id number] 23:43:00* Test Item Value Reference Range Comments PROTIME (BEAKER) (test cxsx=186) 15.5 seconds 11.7-14.7 INR (BEAKER) (test ouoy=174) 1.2 <=5.9 PARTIAL THROMBOPLASTIN TIME (BEAKER) (test iwha=944) 44.0 seconds 22.5-36.0 RECOMMENDED COUMADIN/WARFARIN INR THERAPY RANGESSTANDARD DOSE: 2.0 - 3.0 Inclu taylor: PROPHYLAXIS for venous thrombosis, systemic embolization; TREATMENT for benson ous thrombosis and/or pulmonary embolus.HIGH RISK: Target INR is 2.5-3.5 for pat ients with mechanical heart valves.CBC W/PLT COUNT & AUTO [id number] 23:37:00* Test Item Value Reference Range Comments WHITE BLOOD CELL COUNT (BEAKER) (test eqhl=977) 10.3 K/ L 3.5-10.5 RED BLOOD CELL COUNT (BEAKER) (test lhtb=133) 3.37 M/ L 3.93-5.22 HEMOGLOBIN (BEAKER) (test hzbk=332) 10.5 GM/DL 11.2-15.7 HEMATOCRIT (BEAKER) (test tifk=563) 34.1 % 34.1-44.9 MEAN CORPUSCULAR VOLUME (BEAKER) (test fisn=884) 101.2 fL 79.4-94.8 MEAN CORPUSCULAR HEMOGLOBIN (BEAKER) (test fall=353) 31.2 pg 25.6-32.2 MEAN CORPUSCULAR HEMOGLOBIN CONC (BEAKER) (test cmhl=984) 30.8 GM/DL 32.2-35.5 RED CELL DISTRIBUTION WIDTH (BEAKER) (test fdhi=788) 14.1 % 11.7-14.4 PLATELET COUNT (BEAKER) (test oiho=729) 254 K/CU MM 150-450 MEAN PLATELET VOLUME (BEAKER) (test hkpm=264) 11.2 fL 9.4-12.3 NUCLEATED RED BLOOD CELLS (BEAKER) (test bemi=476) 0 /100 WBC 0-0 NEUTROPHILS RELATIVE PERCENT (BEAKER) (test dizg=903) 43 % LYMPHOCYTES RELATIVE PERCENT (BEAKER) (test lnku=260) 47 % MONOCYTES RELATIVE PERCENT (BEAKER) (test lkah=019) 5 % EOSINOPHILS RELATIVE PERCENT (BEAKER) (test tvee=486) 5 % BASOPHILS RELATIVE PERCENT (BEAKER) (test aulb=241) 1 % NEUTROPHILS ABSOLUTE COUNT (BEAKER) (test qfjc=075) 4.43 K/ L 1.56-6.13 LYMPHOCYTES ABSOLUTE COUNT (BEAKER) (test xchr=994) 4.84 K/ L 1.18-3.74 MONOCYTES ABSOLUTE COUNT (BEAKER) (test tppw=001) 0.50 K/ L 0.24-0.36 EOSINOPHILS ABSOLUTE COUNT (BEAKER) (test kczb=283) 0.46 K/ L 0.04-0.36 BASOPHILS ABSOLUTE COUNT (BEAKER) (test uimn=097) 0.06 K/ L 0.01-0.08 IMMATURE GRANULOCYTES-RELATIVE PERCENT (BEAKER) (test agdj=3161) 0 % 0-1
[2018-11-03] MEDS ORDERED: ASPIRIN 81 MG CHEW TAB PO NR (20:30)
[2018-11-03] MEDS ORDERED: NITROGLYCERIN 2% OINT 1 GM PKT TOP ONE (20:30)
[2018-11-03] MEDS ORDERED: FAMOTIDINE 20 MG/2 ML VIAL IV NR (20:30)
[2018-11-03] MEDS ORDERED: ONDANSETRON HCL INJ 2 MG/ML VIAL IV NR (20:30)
--- NOTE | 2018-11-03 20:41 | NUR ---
PT TO XRAY
--- NOTE | 2018-11-03 21:07 | Diagnostic Imaging Report ---
Examination: Single AP view of the chest. COMPARISON: None. INDICATION: CHF, chest pain IMPRESSION: 1. Lines and Tubes: None 2. Lungs are grossly clear. No consolidation or effusion. 3. Cardiomediastinal silhouette is normal. Pulmonary vasculature is normal. CABG changes. 4. No acute bony abnormalities. Signed by: Dr. Yariel Dietz M.D. on 11/03/2018 9:03 PM
[2018-11-03] MEDS ORDERED: ONDANSETRON HCL INJ 2 MG/ML VIAL IV PRN (21:30)
[2018-11-03] MEDS ORDERED: ENALAPRILAT IV INJ 1.25 MG/ML VIAL IV PRN (21:30)
[2018-11-03] MEDS ORDERED: ACETAMINOPHEN 325 MG TAB PO PRN (21:30)
[2018-11-03] MEDS ORDERED: ZOLPIDEM TARTRATE 5 MG TAB PO PRN (21:30)
[2018-11-03] MEDS ORDERED: DIPHENHYDRAMINE HCL INJ 50 MG/ML VIAL IV PRN (21:30)
[2018-11-03] MEDS: MORPHINE SULFATE INJ 4 MG/ML INJ IV PRN (22:40)
[2018-11-03 22:44] LABS: BASOPHILS # (AUTO) 0.1 (0.0-0.1); BASOPHILS % 0.5 % (0.0-1.0); EOSINOPHILS # (AUTO) 0.1 (0.0-0.4); EOSINOPHILS % 1.2 % (0.0-6.0); HEMATOCRIT 44.6 % (34.2-44.1); HEMOGLOBIN 14.4 g/dL (12.0-16.0); LYMPHOCYTES # (AUTO) 4.4 (1.0-3.2); LYMPHOCYTES % 41.7 % (18.0-39.1); MEAN CORPUSCULAR HGB CONC 32.3 g/dL (31-35); MEAN CORPUSCULAR VOLUME 96.1 fL (81-99); MONOCYTES # (AUTO) 0.6 (0.2-0.8); MONOCYTES % 5.4 % (4.4-11.3); NEUTROPHILS # (AUTO) 5.3 (2.1-6.9); NEUTROPHILS % 50.7 % (38.7-80.0); PLATELET COUNT 265 x10e3/uL (140-360); RED BLOOD COUNT 4.64 x10e6/uL (3.6-5.1); RED CELL DISTRIBUTION WIDTH 12.1 % (11.7-14.4)
[2018-11-03 23:02] LABS: ALBUMIN 3.9 g/dL (3.5-5.0); ALBUMIN/GLOBULIN RATIO 1.1 (0.8-2.0); ANION GAP 14.7 mmol/L (8-16); CALCIUM 9.5 mg/dL (8.4-10.2); CREATININE, SERUM 1.01 mg/dL (0.57-1.11); POTASSIUM 3.7 mmol/L (3.5-5.1)
--- NOTE | 2018-11-03 23:03 | Diagnostic Imaging Report ---
EXAM: CT ABDOMEN AND PELVIS without IV CONTRAST INDICATION: Right flank pain COMPARISON: None TECHNIQUE: The abdomen and pelvis were scanned using a multidetector helical scanner. Coronal and sagittal reformations were obtained. Dose modulation, iterative reconstruction, and/or weight based adjustment of the mA/kV was utilized to reduce the radiation dose to as low as reasonably achievable. Renal stone protocol performed. IV Contrast: None Oral Contrast: None CTDIvol has been reviewed. It is below the limits set by the Radiation Protocol Committee (RPC). FINDINGS: LOWER THORAX: No consolidations LIVER: Relative enlargement of the left lobe of the liver and caudate. Diffuse hepatic steatosis and hepatomegaly. BILIARY: Cholecystectomy. Mild dilation of the common bile duct to 9 mm consistent with reservoir effect. SPLEEN: Mild splenomegaly to 13 cm and AP diameter. PANCREAS: No masses ADRENALS: No nodules RIGHT KIDNEY: Numerous punctate stones and Randles plaques throughout the right kidney. Largest stone is in the inferior pole measuring 2 mm. No hydronephrosis. LEFT KIDNEY: Numerous punctate stones and Randles plaques throughout the left kidney. Largest stone measures 2 mm in the inferior pole. No hydronephrosis. GI TRACT: No wall thickening or obstruction. Sigmoid colon diverticulosis. Normal appendix. VESSELS: Advanced atherosclerotic changes of the abdominal aorta without aneurysm. PERITONEUM/RETROPERITONEUM: No free air or fluid LYMPH NODES: No lymphadenopathy REPRODUCTIVE ORGANS: Uterus and ovaries not visualized. BLADDER: Collapsed SOFT TISSUES: Normal BONES: Posterior spinal fusion, laminectomies and intervertebral body disc spacers L4/L5 and L5/S1. IMPRESSION: Numerous bilateral punctate renal stones and Randles plaques. No ureteral stones or hydronephrosis. Appearance of liver and mild splenomegaly suggestive of cirrhosis. Signed by: Dr. May Villarreal M.D. on 11/03/2018 11:00 PM
[2018-11-03 23:13] LABS: CREATINE KINASE MB 2.2 ng/mL (0-5.0)
[2018-11-04] MEDS ORDERED: ONDANSETRON HCL INJ 2 MG/ML VIAL IV PRN (00:15)
[2018-11-04] MEDS ORDERED: METOPROLOL TARTRATE 25 MG TAB PO SCH (00:15)
[2018-11-04] MEDS ORDERED: FAMOTIDINE 20 MG TAB PO SCH ×2 (00:15→07:30)
[2018-11-04] MEDS ORDERED: ENOXAPARIN SODIUM INJ 100 MG/ML SYR SC ONE (00:15)
[2018-11-04] MEDS ORDERED: MORPHINE SULFATE 2 MG/ML SYR IV PRN (00:15)
[2018-11-04] MEDS ORDERED: NITROGLYCERIN 0.4 MG SUBL SL PRN (00:15)
[2018-11-04] MEDS ORDERED: DEXTROSE 50% SYRINGE 50 ML IV PRN (00:30)
[2018-11-04 00:38] VITALS: BP_SYST 106; BP_SYST 164; BP_DIAS 103; BP_DIAS 56
--- NOTE | 2018-11-04 00:38 | NUR ---
patient is a new admit that arrived via strecther. patient has been helped into the bed. bed is in the lowest position and call jameson is within reach, will continue to monitor patient.
--- OUTSIDE RECORDS SUMMARY | 2018-11-04 00:41 | XMS REPORT | Clinical Summary ---
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 Name Role Phone Pcp, No PCP Unavailable [...] failure 06/02/2017 Severe Coronary artery disease involving [place] coronary artery of [place] 06/02/2017 heart Social History Date Tobacco Use [...] Not on file Results Not on fileafter 11/03/2017 Insurance Payer Benefit Subscriber ID Type Phone Address Plan / Group [employer] - MGD CARE CIG[employer] xxxxxxxxxxx HMO/POS HMO/POS/OP EN ACCESS Advance Directives For more information, please contact: [facility] [address] [place] [phone] Date Inactivated Comments Code Status Date Activated 06/13/2017 7:26 PM Full Code 06/07/2017 6:14 PM This code status was determined by: 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
--- OUTSIDE RECORDS SUMMARY | 2018-11-04 00:41 | XMS REPORT | Continuity of Care Document ---
Author Author [facility] Interface Address Unknown Phone Unavailable Problems Problem Status Onset Date Classification Date Reported Comments Source Hx of CABG Active Diagnosis 05/21/2018 Kevin Brown DM w/o complication type II, uncontrolled Active Diagnosis 05/21/2018 Kevin Brown Other symptoms involving cardiovascular system Active Diagnosis 05/21/2018 Kevin Brown Atherosclerosis of [place] coronary artery of [place] heart without angina pectoris Active Problem 05/21/2018 Kevin Brown Atheroscler-limb&claudic Active Problem 05/21/2018 Kevin Brown Tachycardia Active Diagnosis 05/21/2018 Kevin Brown Shortness of breath Active Diagnosis 05/21/2018 Kevin Brown Precordial pain Active Diagnosis 05/21/2018 Kevin Brown Open wound of right foot, initial encounter Active Diagnosis 05/21/2018 Kevin Brown Tobacco abuse Active Diagnosis 05/21/2018 Kevin Brown Medications Medication Details Route Status Patient Instructions Ordering Provider Order Date Source Toprol XL 1 tablet Orally Active 25 MG Orally Once a day med 11/13/2017 Kevin Brown Toprol XL 1 tablet Orally Active 25 MG Orally Once a day Kevin Brown Tramadol HCl 1 tablet as needed Orally Active 50 MG Orally every 6 hrs Kevin Brown Gabapentin 1 tablet Orally Active 600 MG Orally Three times a day Kevin Brown Aspirin 1 tablet Orally Active 81 MG Orally Once a day aaliyah Brown Tizanidine HCl 1 tablet as needed [...] Active 10 MEQ Orally Twice a day Thomasaaliyah Thomasaaliyah Brown Metoprolol Succinate ER 1 tablet Orally Active 25 MG Orally Once a day Thomasaaliyah Thomasaaliyah Thomasaaliyah Furosemide 1 tablet Orally Active 20 MG Orally Once a day Kevin Gumzanaaliyah Thomasaaliyah Atorvastatin Calcium 1 tablet Orally Active 40 MG Orally Once a day Thomasaaliyah Thomasaaliyah Thomasaaliyah Carvedilol not defined Orally Active 3.125 MG Orally Thomasaaliyah Thomasaaliyah Thomasaaliyah Allergies, Adverse Reactions, Alerts Substance Category Reaction Severity Reaction type Status Date Reported Comments Source Effexor Adverse Reaction Info Not Available Adverse Reaction Active 04/02/2018 Thomasaaliyah Thomasaaliyah Detrol Adverse Reaction Info Not Available Adverse Reaction Active 04/02/2018 Thomasaaliyah Thomasaaliyah Versed Adverse Reaction Info Not Available Adverse Reaction Active 04/02/2018 Thomasaaliyah Thomasaaliyah Immunizations Immunization Date Given Site Status Last Updated Comments Source Results Order Name Results Value Reference Range Date Interpretation Comments Source Vital Signs Vital Sign Value Date Comments Source Weight 133 04/02/2018 Kevin Brown Heart Rate 102 04/02/2018 Kevin Guzmanaaliyah Diastolic (mm Hg) 70 04/02/2018 Kevin Guzmanaaliyah Systolic (mm Hg) 112 04/02/2018 Kevin Brown Weight 133 11/13/2017 Kevin Guzmanmed Heart Rate 120 11/13/2017 Thomasaaliyah Thomasaaliyah Diastolic (mm Hg) 80 11/13/2017 Thomasaaliyah Thomasaaliyah Systolic (mm Hg) 122 11/13/2017 Thomasaaliyah Thomasaaliyah Encounters Location Location Details Encounter Type Encounter Number Reason For Visit Attending Provider ADM Date DC Date Status Source Procedures Procedure Code Date Perfomer Comments Source
[2018-11-04 02:00] VITALS: BP 140/90
[2018-11-04] MEDS ORDERED: TYLENOL WITH C1 EACH PO (02:29)
[2018-11-04] MEDS: MORPHINE SULFATE INJ 4 MG/ML INJ IV PRN ×2 (03:01→07:35)
[2018-11-04 04:00] VITALS: BP 103/56
[2018-11-04] MEDS ORDERED: INSULIN REGULAR, HUMAN 100 UNIT/1 ML 3ML VIAL SQ SCH (07:30)
[2018-11-04 07:42] LABS: CREATINE KINASE MB 2.2 ng/mL (0-5.0)
[2018-11-04 08:43] VITALS: BP 112/71
--- NOTE | 2018-11-04 08:50 | NUR ---
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 CM/SW role and care transitions discussed. Anticipated discharge plan discussed along with duration of care. CM/SW discussed patients right to make decisions in care. CM/SW work hours given. Patient lives: IN OWN HOUSE WITH FAMILY Admit/Transfer: VIA ED FROM HOME POA/Emergency contact: ELZA NAJERA [phone] Current/Previous Home Health: NONE PCP/Follow-up Care: ALIVIA Current/Previous DME: NONE Other Services: NONE Employment Status: DISABLED Areas of Concerns: NONE Referral Needs: NONE Education Needs: NONE IMM/WASSERMAN given and signed (if applicable): NA Goal for discharge: RETURN HOME INDEPENDENTLY CM/SW left business card at the bedside with contact information. Name and number was also written on the patients whiteboard. Patient verbalized understanding of discussion. CM will follow-up with ongoing discharge and transition of care needs.
[2018-11-04] MEDS ORDERED: ASPIRIN 325 MG TAB EC PO SCH (09:00)
[2018-11-04] MEDS ORDERED: LISINOPRIL 10 MG TAB PO SCH (09:00)
--- NOTE | 2018-11-04 09:38 | History and Physical ---
Ms. Clarke is a 53-year-old female with a history of coronary artery disease, hypertension, hyperlipidemia, COPD, diabetes, tobacco abuse, who came to the emergency room complaining of 3 days history of chest pain on and off, worse with cough and some yellowish phlegm. No nausea, vomiting and no shortness of breath. No fever. PAST MEDICAL HISTORY: Coronary artery disease, status post CABG, hypertension, hyperlipidemia, diabetes, COPD. SOCIAL HISTORY: She smokes but she does not drink. ALLERGIES: SHE IS ALLERGIC TO BENADRYL. PAST SURGICAL HISTORY: She had cholecystectomy, tonsillectomy, kidney stones removed, and CABG in 2017. PHYSICAL EXAMINATION GENERAL: Today, she is awake and alert. She wants to go home. VITALS: Blood pressure is 103/66, temperature is 96.4, pulse is 75, respiratory rate is 18, O2 saturation is 96%. HEART: Regular rate. LUNGS: Clear to auscultation. ABDOMEN: Soft. LOWER EXTREMITIES: No edema. No erythema. BLOOD WORK: Potassium is 3.7, creatinine 1.01, glucose is 238. White count is 10., hemoglobin is 14.4 and hematocrit is 44.6. Had a chest x-ray on admission that shows lungs are grossly clear. The heart is normal. She had CABG. No bony abnormalities. She also had an abdominal and pelvic CT that shows bilateral punctate renal stones and Darrell's plaques. No ureteral stones or hydronephrosis. ASSESSMENT AND PLAN 1. Chest pain: Rule out angina, probably secondary to bronchitis. 2. Acute bronchitis. 3. Coronary artery disease: Status post coronary artery bypass graft. 4. Diabetes, type 2 with hyperglycemia. 5. Hypertension. 6. Hyperlipidemia. 7. Chronic obstructive pulmonary disease. 8. Tobacco use. 9. History of kidney stones. PLAN: At the present time, is to get a cardiology consult with Dr. Melton that has seen the patient after she had the heart surgery. Continue her home medications. If she is not on antibiotics, we are going to put her on Levaquin 500 mg daily. All this was discussed with the patient. All questions were answered to satisfaction. Job#: [id number] [place]
[2018-11-04 09:45] VITALS: BP 112/71
[2018-11-04] MEDS ORDERED: LEVOFLOXACIN 500 MG TAB PO SCH (10:00)
--- NOTE | 2018-11-04 10:24 | NUR ---
patient very agitated and went AMA at 10:20. SL removed. all personal belongings gathered by patient. instructed to the dangers of leaving up to and including . escorted to front entrance without incident.
[2018-11-04] MEDS ORDERED: SIMVASTATIN 20 MG TAB PO SCH (21:00)
== END 2018-11-04 10:20 | disposition left against medical advice (07) ==
LOC: ER 20:22 → ERHOLD 11-04 00:38 → IMCU 11-04 01:25
PROVIDERS: ADMIT Internal Medicine; ATTEND Internal Medicine
DX: R07.9 Chest pain, unspecified (principal); J20.9 Acute bronchitis, unspecified; E11.65 Type 2 diabetes mellitus with hyperglycemia; I25.10 Atherosclerotic heart disease of native coronary artery without angina pectoris; Z95.1 Presence of aortocoronary bypass graft; I10 Essential (primary) hypertension; E78.5 Hyperlipidemia, unspecified; J44.9 Chronic obstructive pulmonary disease, unspecified; Z72.0 Tobacco use; Z87.442 Personal history of urinary calculi; Z88.8 Allergy status to other drugs, medicaments and biological substances; Z79.4 Long term (current) use of insulin
CPT/HCPCS: 36415 ×2; 71045; 74176; 80053; 82550 ×2; 82553 ×2; 82948; 83690; 83880; 84484 ×2; 85025; 85379; 93005; 96374; 96375; 99284; G0378; J1200; J1650; J2270 ×2; J2405